=== PATIENT | male | born 1990 | race Caucasian/White ===

== ENCOUNTER 2017-01-07 18:35 | Inpatient (IN) ==
--- NOTE | 2017-01-07 20:35 | Emergency Department Note ---
Disposition Clinical Impression: Pneumonia, SIRS (systemic inflammatory response syndrome), Lung mass Disposition: Admitted As Inpatient Condition: Fair General Adult HPI - General Chief complaint: ED Dizziness Stated complaint: Dizzy/SOB/Lightheaded/Seen last Saturday Time Seen by Provider: 01/07/17 20:19 Source: patient Limitations: no limitations - History of Present Illness HPI Narrative: Approximately 8 days of cough, chest pain, shortness of breath. Was seen here 7 days ago with same symptoms, had a CT of the chest that did not explain his symptoms, but was told he had a "spot" on his lungs. Was told to follow-up with his family doctor, but is not able to get in to see him until late next month. He was prescribed naproxen last time he was here which helped with his symptoms, but as soon as he stopped taking the naproxen, the symptoms returned. Pain is in the center of his chest, sharp and stabbing, worse with a deep breath and with a cough. There is some associated pain under his right scapula with a deep breath. He has not felt febrile at home, but a temperature of 100.4 in triage. Cough is nonproductive. No hemoptysis. He feels lightheaded and dizzy but has no syncope or presyncope. Has had a sore throat, no ear pain or rhinorrhea. No abdominal pain, nausea, vomiting or diarrhea. Appetite has been normal. No rash. No pain or swelling in the legs. No history of similar symptoms before the last week or so. Pain Scale: 5 - Related Data Home Medications Medication Instructions Recorded Confirmed No Known Home Drugs 01/07/17 01/07/17 Allergies Allergy/AdvReac Type Severity Reaction Status Date / Time No Known Allergies Allergy Verified 12/31/16 18:43 All systems ED: reviewed and negative except as stated. Past Medical History - Past Medical History Medical history: Reports: no medical history Psychiatric history: Reports: no psych history - Social History Smoking Status: Never smoker Smokeless Tobacco Status: Yes (vapor) Alcohol use: Reports: none Drug use: Reports: none Physical Exam - General Limitations: no limitations General appearance: alert, in no apparent distress - Head Head exam: atraumatic, normocephalic - Eye Eye exam: Present: normal appearance. Absent: scleral icterus - ENT ENT exam: normal exam, normal oropharynx, mucous membranes moist - Neck Neck exam: Present: normal inspection, full ROM. Absent: tenderness, meningismus, lymphadenopathy - Chest Chest inspection: Present: normal inspection, symmetric chest wall rise - Respiratory Respiratory exam: Present: other (decreased breath sounds at right base compared to left). Absent: respiratory distress, wheezes, stridor, accessory muscle use, prolonged expiratory phase - Cardiovascular Cardiovascular exam: Present: normal rhythm, tachycardia - Abdominal Exam Abdominal exam: Present: soft, Non-Tender, other (no peritonitis). Absent: distention, guarding - Extremities Exam Extremities exam: Present: normal inspection, full ROM, tenderness. Absent: pedal edema, joint swelling, calf tenderness - Neurological Exam Neurological exam: Present: alert, oriented X3, other (normal speech and mental status, no focal deficits or lateralizing signs). Absent: motor sensory deficit - Psychiatric Psychiatric exam: Present: normal affect, normal mood - Skin Skin exam: Present: warm, dry, intact. Absent: rash Course Course Narrative: Chest x-ray CT result reviewed with the hospitalist on-call, who accepted patient for admission. Discussed in detail with the patient. Possibility of malignancy discussed with the patient. The patient has an infiltrate among the other findings in his chest, and meet surge criteria. Sepsis protocol initiated. Vital Signs Temperature 100.4 F H 01/07/17 19:15 Pulse Rate 120 01/07/17 19:15 Respiratory Rate 18 01/07/17 19:15 Blood Pressure 152/90 01/07/17 19:15 O2 Sat by Pulse Oximetry 96 01/07/17 19:15 Temperature 100.4 F H 01/07/17 19:15 Pulse Rate 113 01/07/17 22:31 Respiratory Rate 16 01/07/17 22:31 Blood Pressure 131/67 01/07/17 22:31 O2 Sat by Pulse Oximetry 97 01/07/17 22:31 Oxygen Delivery Oxygen Delivery Room Air Medical Decision Making - Lab Data Result diagrams: 01/07/17 20:58 01/07/17 20:58 Lab Results 01/07/17 01/07/17 01/07/17 Range/Units 20:58 20:58 22:36 WBC 16.4 H (4.3-11.1) K/mcL RBC 5.13 (4.19-5.50) M/mcL Hgb 14.3 (12.9-16.9) g/dL Hct 43.1 (37.5-50.1) % MCV 84.0 (83.0-100.0) fL MCH 27.9 L (28.0-33.3) pg MCHC 33.2 (31.6-35.5) g/dL RDW 12.9 (11.5-14.5) % Plt Count 521 H (140-400) K/mcL MPV 10.4 (9.4-12.4) fL Immature Gran % 0.9 (0-4) % Seg Neutrophils % 81.1 % Lymphocytes % 10.3 % Monocytes % 6.7 % Eosinophils % 0.6 % Basophils % 0.4 % Neutrophils # 13.3 H (1.6-8.9) K/mcL Lymphocytes # 1.7 (0.6-4.6) K/mcL Monocytes # 1.1 (0.0-1.3) K/mcL Eosinophils # 0.1 (0.0-0.6) K/mcL Basophils # 0.1 (0.0-0.2) K/mcL Sodium 135 L (136-145) mEq/L Potassium 3.8 (3.5-4.5) mEq/L Chloride 102 (98-109) mEq/L Carbon Dioxide 23 (19-29) mEq/L BUN 12 (8-26) mg/dL Creatinine 0.80 (0.72-1.25) mg/dL Est GFR ( Amer) > 60 (> 60) Est GFR (Non-Af Amer) > 60 (> 60) BUN/Creatinine Ratio 15 (6-26) Glucose 92 (70-99) mg/dL Calculated Osmolality 279 L (280-300) Lactic Acid 0.9 (0.5-2.2) mmol/L Calcium 9.7 (8.6-10.8) mg/dL - EKG Data EKG #1 EKG shows normal: sinus rhythm Rate: tachycardia (normal intervals/QRS, no acute ischemic changes, S1 Q3 T3 suggestive of right heart strain)
[2017-01-07 21:14] LABS: Basophils # 0.1 K/mcL (0.0-0.2); Basophils % 0.4 %; Eosinophils # 0.1 K/mcL (0.0-0.6); Eosinophils % 0.6 %; Hematocrit 43.1 % (37.5-50.1); Hemoglobin 14.3 g/dL (12.9-16.9); Immature Granulocytes % 0.9 % (0-4); Lymphocytes # 1.7 K/mcL (0.6-4.6); Lymphocytes % 10.3 %; Mean Corpuscular HGB Conc 33.2 g/dL (31.6-35.5); Mean Corpuscular Hemoglobin 27.9 pg (28.0-33.3); Mean Platelet Volume 10.4 fL (9.4-12.4); Monocytes # 1.1 K/mcL (0.0-1.3); Monocytes % 6.7 %; Neutrophils # 13.3 K/mcL (1.6-8.9); Platelet Count 521 K/mcL (140-400); Red Blood Count 5.13 M/mcL (4.19-5.50); Red Cell Distribution Width 12.9 % (11.5-14.5); Segmented Neutrophils % 81.1 %
[2017-01-07 21:28] LABS: BUN/Creatinine Ratio 15 (6-26); Blood Urea Nitrogen 12 mg/dL (8-26); Calcium 9.7 mg/dL (8.6-10.8); Carbon Dioxide 23 mEq/L (19-29); Chloride 102 mEq/L (98-109); Glucose 92 mg/dL (70-99); Osmolality,Calculated 279 (280-300); Potassium 3.8 mEq/L (3.5-4.5); Sodium 135 mEq/L (136-145); eGFR For African Americans > 60 (> 60); eGFR For Non-African Americans > 60 (> 60)
[2017-01-07] MEDS: 0.9 % Sodium Chloride 1,000 ML IVC SCH ×2 (22:28→23:28)
[2017-01-07] MEDS ORDERED: Benzonatate 100 MG CAPSULE PO ONE (23:36)
--- NOTE | 2017-01-08 03:38 | Internal Med History&Physical ---
Date of Encounter: 01/08/17 Time of Encounter: 03:38 Assessment and Plan (1) Mediastinal mass Current visit: Yes Status: Acute Recent CT chest showed showed posterior mediastinal mass in the subcarinal region, measuring 3.84.6 cm - may represent an enlarged lymph node or mediastinal neoplastic mass. Bilateral hilar adenopathy. Lymphoma should be considered. We will check LDH level. Consult pulmonary physician for possible bronchoscopy / biopsy of the lesion. Consult oncologist for further advice (2) Chest pain Current visit: Yes Status: Acute Likely musculo-skeletal pain. Pain relief PRN. (3) SIRS (systemic inflammatory response syndrome) Current visit: Yes Status: Acute Could be secondary to lymphoma versus Pneumonia (Recent CT chest reported Nodular infiltrates in the left lower lobe) Treat with IV fluids and emperic antibiotics. (4) Pulmonary infiltrate Current visit: Yes Status: Acute Recent CT chest showed Nodular infiltrates in the left lower lobe. Emperically treat with levofloxacin. Lactate level is normal (5) Pleural effusion Current visit: Yes Status: Acute Small effusion reported on CT chest. Monitor (6) DVT prophylaxis Current visit: Yes Status: Acute Heparin Internal Medicine - H&P: HPI Chief complaint: chest pain Admitted From: Emergency Dept Plans for Post Hospital Care: Home History of present illness: Mr. Renteria is a 26 year old male With no significant past medical history, initially presented to the emergency department at [facility] on 12/31/2016 with 4 day h/o chest with pleuritic nature. He had CTA chest done, which showed no evidence of pulmonary embolism, but showed posterior mediastinal mass in the subcarinal region. He was discharged home with planned follow-up with the primary care physician. He could not get an appointment with PCP until next month. He continues to have chest pain, which is sharp in the central chest, 5/10 at rest and 8/10 with cough. Pain moves across the chest. He feels short of breath at rest and on exertion. His colleague mentioned to him that he was wheezing while breathing. He has nonproductive cough, which is getting worse. He feels tired. He reports low- grade fevers and night sweats for 2 days. He denies abdominal pain, nausea, vomiting, dysuria, hematuria, or bowel problems. He reports chronic exposure to fumes at work place. He was evaluated in the emergency department and CXR showed bilateral hilar adenopathy. He is admitted to the hospitalist service for further management. Past Med Surg Social Fam HX - Past Medical History Medical history: no medical history Psychiatric history: no psych history - Past Surgical History Surgical History: cholecystectomy - Social History Smoking Status: Never smoker Smokeless Tobacco Status: Yes (vapor) Alcohol use: none Drug use: none - Additional Family History Additional family history: Family history noncontributory to current admission Internal Medicine - H&P: Meds No Known Home Drugs 01/07/17 [History] Allergies No Known Allergies Allergy (Verified 12/31/16 18:43) All Systems PM: A 10-system review of systems was performed and is negative for pertinent findings except as documented above in the HPI. - Constitutional Vitals: Temp Pulse Resp BP Pulse Ox 99.0 F 107 19 141/68 94 01/08/17 01:02 01/08/17 01:02 01/08/17 01:02 01/08/17 01:02 01/08/17 01:02 Exam: General: Not in acute distress at the time of my evaluation HEENT: Oral mucosa is moist. No conjunctival palor or scleral icterus Neck: No obvious neck swellings. No obvious cervical/bilateral axillary lymphadenopathy Lungs: Clear to auscultation Cardiac: Regular rate and rhythm, tachycardic. No significant murmurs. Anterior chest wall tenderness present Abdomen: Soft, non tender. Bowel sounds present Genitourinary: No hutchison catheter Neurological: Alert and oriented. No gross localizing deficits Psych: Not aggressive or agitated Extremities: no significant leg edema Skin: No generalized rash Internal Med - H&P Results - Labs CBC & Chem 7: 01/08/17 04:05 01/08/17 04:05 - EKG Data -: EKG Interpreted by Myself EKG shows normal: sinus rhythm Rate: tachycardia - EKG Data EKG comments: Q wave in lead III, avf 01/08/17 05:51 - Impressions ITS Impressions Chest X-Ray 01/07/17 20:20 IMPRESSION: Persistent bilateral hilar lymphadenopathy right more pronounced than left seen to better advantage on CT from 1 week earlier with some right basilar atelectasis and small right pleural effusion as well as focal mass in the left lung base. Neoplasm needs to be excluded. Lymphoma is questioned. D/ / 01/07/2017 20:49:40 Rylan Morales MD / [email or web address] Interpreting Provider: Rylan Morales MD
[2017-01-08] MEDS ORDERED: Naloxone 0.4 MG/ML INJ IVP PRN (03:39)
[2017-01-08] MEDS ORDERED: Acetaminophen 325 MG TABLET PO PRN (03:39)
[2017-01-08] MEDS ORDERED: Levalbuterol Neb 1.25 MG/3 ML IH PRN (03:49)
[2017-01-08] MEDS: *HR* HYDROcodone/Acet 5/325 mg TABLET PO PRN ×2 (03:52→08:27)
[2017-01-08] MEDS: 0.9 % Sodium Chloride 1,000 ML IVC SCH ×4 (03:53→23:23)
[2017-01-08 04:54] LABS: Hematocrit 37.1 % (37.5-50.1); INR 1.6; Mean Corpuscular HGB Conc 33.2 g/dL (31.6-35.5); Mean Corpuscular Hemoglobin 27.9 pg (28.0-33.3); Mean Corpuscular Volume 84.1 fL (83.0-100.0); Mean Platelet Volume 10.5 fL (9.4-12.4); Platelet Count 466 K/mcL (140-400); Prothrombin Time 17.1 Seconds (9.4-12.1); Red Blood Count 4.41 M/mcL (4.19-5.50); Red Cell Distribution Width 13.1 % (11.5-14.5)
[2017-01-08 04:57] LABS: Hemoglobin 12.3 g/dL (12.9-16.9)
[2017-01-08 05:08] LABS: Alanine Aminotransferase 21 Units/L (0-55); Albumin 2.8 g/dL (3.5-5.0); Albumin/Globulin Ratio 0.6 (1.1-2.2); Alkaline Phosphatase 136 Units/L (38-126); Aspartate Amino Transferase 31 Units/L (5-34); BUN/Creatinine Ratio 17 (6-26); Bilirubin,Total 0.7 mg/dL (0.2-1.2); Blood Urea Nitrogen 13 mg/dL (8-26); Carbon Dioxide 22 mEq/L (19-29); Chloride 106 mEq/L (98-109); Globulin 4.4 g/dL (2.4-3.5); Glucose 88 mg/dL (70-99); Lactate Dehydrogenase 215 Units/L (159-327); Magnesium 1.7 mg/dL (1.6-2.6); Osmolality,Calculated 284 (280-300); Potassium 3.7 mEq/L (3.5-4.5); Sodium 137 mEq/L (136-145); Total Protein 7.2 g/dL (6.0-8.3); eGFR For African Americans > 60 (> 60); eGFR For Non-African Americans > 60 (> 60)
[2017-01-08] MEDS: Levofloxacin 750 MG/150 ML 750 MG/150 ML BAG IVPB SCH ×2 (06:17→09:56)
[2017-01-08] MEDS: *HR* Heparin 5,000 UNIT/ML VIAL SQ SCH ×3 (08:28→23:21)
--- NOTE | 2017-01-08 10:04 | Internal Med Progress Note ---
<Senthil Deleon - Last Filed: 01/08/17 16:26> Date of Encounter: 01/08/17 Time of Encounter: 08:50 - Assessment and plan (1) Mediastinal mass Current Visit: Yes Status: Acute Assessment and plan: Recent CTA chest shows a posterior mediastinal mass in the sub-carinal region measuring 3.8x4.6 with bilateral hilar adenopathy. This finding is concerning as it could possibly represent a neoplastic process. His pleuritic chest pain could be related to his underlying lung pathology. His subjective fevers, anoerexia, diaphoresis, and fatigue are concerning for possible neoplastic process as well. Pulmonology has been consulted for evaluation for possible bronchoscopy Oncology has also been consulted to help asses the malignancy concern Continue levaquin day 2 Will stop xopenex and start albuterol NPO at midnight Continue IVF with 100 mls/hr NS (2) SIRS (systemic inflammatory response syndrome) Current Visit: Yes Status: Acute Assessment and plan: Patient presents with several SIRS criteria (tachycardia, leukocytosis, and fever). He might have an infection in his lung, making his current problem Sepsis, but it is unconfirmed at the moment and the findings on CT could represent the changes seen. He received 1 liter of fluids at presentation and is being continued on IVF with 100 mls/hr NS currently Continuing IV levoquin (3) Pulmonary infiltrate Current Visit: Yes Status: Acute Assessment and plan: Nodular Infiltrates noted on CTA from 12/31/16. This could represent infection. Will cover with empiric antibiotics for now. Continue IV levofloxacin (4) Pleural effusion Current Visit: Yes Status: Acute Assessment and plan: Small pleural effusion noted on CT Chest. Plan as above (5) Chest pain Current Visit: Yes Status: Acute Assessment and plan: Pain pleuritic chest pain likely related cough and continued pleuritic pain. Pain as above Qualifiers: Chest pain type: unspecified Qualified Code(s): R07.9 - Chest pain, unspecified (6) DVT prophylaxis Current Visit: Yes Status: Acute Assessment and plan: 5000 U heparin SQ TID - Subjective Interval history: Patient reports that he is continuing to have pain in his chest that does not seem to be affected by the pain medications that he has been receiving. He reports the pain in pleuritic in nature ranging from a 5/10 at baseline and going to a 9-10 in severity when coughing/breathing. He reports having some shortness of breath, fever, and night sweats recently. He states that he has been somewhat fatigued and has had a dry, non-productive cough. This has continued while admitted, but reports that he finds it difficult to sleep on account of the pain in his chest. - Constitutional Vitals: Temp Pulse Resp BP Pulse Ox 98.9 F 97 16 132/79 96 01/08/17 06:58 01/08/17 06:58 01/08/17 06:58 01/08/17 06:58 01/08/17 09:21 Exam: General: Cooperative, pleasant, no acute distress, alert and oriented 3, answers questions appropriately HEENT: Normocephalic, atraumatic, neck supple, trachea midline, Conjunctiva pink , sclera anicteric, oral mucosa moist, no orophargeal erythema or exudates Respiratory: No accessory muscle usage, right sided rales on auscultation Cardiovascular: tachycardia, regular rhythm, S1 and S2 present, no murmurs/rubs/ gallops/clicks appreciated, tenderness to palpation of sternal region GI/abdominal: Nondistended, nontender, soft, normal bowel sounds, no peritoneal signs Extremities: No calf tenderness, noncyanotic, no pedal edema appreciated, warm, lower extremity pulses palpable and symmetrical Neurological: Alert and oriented 3, no facial droop, no focal deficits Skin: Dry, intact, normal color Internal Medicine: Result - Labs CBC & Chem 7: 01/08/17 04:05 01/08/17 04:05 Labs: Short CBC 01/08/17 Range/Units 04:05 WBC 15.8 H (4.3-11.1) K/mcL Hgb 12.3 L D (12.9-16.9) g/dL Hct 37.1 L (37.5-50.1) % Plt Count 466 H (140-400) K/mcL BMP 01/08/17 04:05 Sodium 137 Potassium 3.7 Chloride 106 Carbon Dioxide 22 BUN 13 Creatinine 0.78 Glucose 88 Calcium 9.0 Cardiac Enzymes 01/08/17 Range/Units 04:05 Troponin I 0.00 (0-0.03) ng/mL Liver Function 01/08/17 Range/Units 04:05 Total Bilirubin 0.7 (0.2-1.2) mg/dL AST 31 (5-34) Units/L ALT 21 (0-55) Units/L Alkaline Phosphatase 136 H (38-126) Units/L Albumin 2.8 L (3.5-5.0) g/dL - ABG Interpretation ABG results: PT/INR, D-dimer PT 17.1 Seconds (9.4-12.1) H 01/08/17 04:05 Consult Discharge Plan - Plan Referrals: Geoff,Jasmina Morin CNP [Advanced Practice Nurse] - 01/15/17 1:15 pm <Vimal Collier - Last Filed: 01/08/17 16:44> Date of Encounter: 01/08/17 - Constitutional Vitals: Temp Pulse Resp BP Pulse Ox 98.2 F 97 16 155/80 95 01/08/17 15:25 01/08/17 15:25 01/08/17 15:25 01/08/17 15:25 01/08/17 15:25 Internal Medicine: Result - Labs CBC & Chem 7: 01/08/17 04:05 01/08/17 04:05 Labs: Short CBC 01/08/17 Range/Units 04:05 WBC 15.8 H (4.3-11.1) K/mcL Hgb 12.3 L D (12.9-16.9) g/dL Hct 37.1 L (37.5-50.1) % Plt Count 466 H (140-400) K/mcL BMP 01/08/17 04:05 Sodium 137 Potassium 3.7 Chloride 106 Carbon Dioxide 22 BUN 13 Creatinine 0.78 Glucose 88 Calcium 9.0 Cardiac Enzymes 01/08/17 Range/Units 04:05 Troponin I 0.00 (0-0.03) ng/mL Liver Function 01/08/17 Range/Units 04:05 Total Bilirubin 0.7 (0.2-1.2) mg/dL AST 31 (5-34) Units/L ALT 21 (0-55) Units/L Alkaline Phosphatase 136 H (38-126) Units/L Albumin 2.8 L (3.5-5.0) g/dL - ABG Interpretation ABG results: PT/INR, D-dimer PT 17.1 Seconds (9.4-12.1) H 01/08/17 04:05 - Attending Attestation I examined this patient and my medical decision-making was reviewed with the COLD WORK OPERATOR/PA/Advanced Practice Nurse/Resident Physician. I agree with the documented findings, disposition and treatment plan as described except to the extent set forth below. oncology and pulmonary input appreciated.
[2017-01-08 11:34] LABS: Carcinoembryonic Antigen 0.9 ng/mL (0-5.0)
--- NOTE | 2017-01-08 12:54 | Oncology Inp Consult Note ---
Date of Encounter: 01/08/17 Time of Encounter: 12:30 Assessment and Plan (1) Mediastinal mass Status: Acute Assessment and plan: I met with Mr. Renteria today and reviewed his labs imaging and history with him. He has significant mediastinal lymphadenopathy. This appears to be causing some compression on his esophagus with associated dysphagia. The differential diagnosis includes lymphoma, germ cell tumor and even esophageal cancer. This was discussed with the patient today. I recommend obtaining a biopsy. I reviewed the case with Dr. Briscoe of gastroenterology and the hospitalist team has discussed as were pulmonary. As pulmonary has been officially consulted, and EBUS is quite reasonable. I will also obtain CT imaging of the abdomen and pelvis to complete staging. I will obtain serologies including AFP, hCG, CEA and LDH Further treatment recommendations will be based on the above. I appreciate the opportunityto care for this patient. We will continue to follow. Please call [phone] for any questions. - Data of Consult Requesting Physician: Vimal Collier MD Primary Care Provider: PCP NO - Consult Narrative Reason for consult: Mediastinal mass History of present illness: Mr. Renteria is a 26 year old male who presented to the emergency department 1 week ago for chest pain. CT scan of the chest revealed subcarinal, periesophageal and bilateral hilar adenopathy. Since that time, his chest pain has persisted, he has now developed a nonproductive cough as well. For the past 2 nights, he has had a fever with MAXIMUM TEMPERATURE of 100.4. This is been associated with night sweats as well. Upon further questioning, he is actually had some ongoing issues for the past 3 months or so. He states he lost approximately 30- 40 pounds. He states this is intentional as he is now working second shift at work. With his weight loss, he admits to salt food dysphagia especially when he is "gulping food down". He also can have liquid food dysphagia to carbonate beverages. He has a long-standing history of GERD. No other lumps or bumps. No testicular pain or swelling. No bleeding symptoms of epistaxis, hemoptysis, hematochezia, melena or hematemesis. Past Med Surg Social Fam HX - Past Medical History Medical history: no medical history Psychiatric history: no psych history - Past Surgical History Surgical History: cholecystectomy - Social History Smoking Status: Never smoker Smokeless Tobacco Status: Yes (vapor) Alcohol use: none Drug use: none Medications and Allergies No Known Home Drugs 01/07/17 [History] Allergies No Known Allergies Allergy (Verified 12/31/16 18:43) All systems: reviewed and no additional remarkable complaints except as stated Neurological: Present: headache(s) Additional comments: Headaches have resolved. Oncology - Exam - Constitutional Vitals: Temp Pulse Resp BP Pulse Ox 97.1 F L 99 16 142/68 95 01/08/17 11:07 01/08/17 11:07 01/08/17 11:07 01/08/17 11:07 01/08/17 11:07 - Head Head exam: Present: atraumatic, normal inspection, normocephalic - Eye Eye exam: Present: conjuntiva pink, sclera anicteric - ENT ENT exam: Present: mucous membranes moist, normal oropharynx - Neck Neck exam: Present: full ROM, normal inspection - Respiratory Respiratory exam: Present: CTAB - Cardiovascular Cardiovascular exam: Present: RRR - GI/Abdominal GI/Abdominal exam: Present: normal bowel sounds, soft - exam: Present: circumcision External exam: Present: normal external exam - Extremities Exam Extremities exam: Present: normal inspection - Neurological Exam Neurological exam: Present: CN II-XII intact, oriented X3 Oncology - Results - Labs Labs: Short CBC 01/08/17 Range/Units 04:05 WBC 15.8 H (4.3-11.1) K/mcL Hgb 12.3 L D (12.9-16.9) g/dL Hct 37.1 L (37.5-50.1) % Plt Count 466 H (140-400) K/mcL BMP 01/08/17 04:05 Sodium 137 Potassium 3.7 Chloride 106 Carbon Dioxide 22 BUN 13 Creatinine 0.78 Glucose 88 Calcium 9.0 Cardiac Enzymes 01/08/17 Range/Units 04:05 Troponin I 0.00 (0-0.03) ng/mL Liver Function 01/08/17 Range/Units 04:05 Total Bilirubin 0.7 (0.2-1.2) mg/dL AST 31 (5-34) Units/L ALT 21 (0-55) Units/L Alkaline Phosphatase 136 H (38-126) Units/L Albumin 2.8 L (3.5-5.0) g/dL - Imaging and Cardiology CT scan - chest Status: image reviewed by me Consult Discharge Plan - Plan Referrals: Jasmina Tellez CNP [Advanced Practice Nurse] - 01/15/17 1:15 pm
[2017-01-08] MEDS ORDERED: Albuterol 2.5 MG/3 ML NEBULIZER IH PRN (13:41)
[2017-01-08] MEDS: *HR* OxyCODONE/APAP 5/325 TABLET PO PRN ×3 (13:51→23:21)
--- NOTE | 2017-01-08 17:16 | Pulmonology Consult Note ---
Date of Encounter: 01/08/17 Time of Encounter: 13:05 Assessment and Plan (1) Mediastinal mass Current Visit: Yes Status: Acute 26-year-old male with no identifiable risk factors for malignancy with approximately 3 x 4 cm subcarinal mass. 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 Agree that findings are concerning for possible malignancy. Discussed the option of bronchoscopy with Perry needle biopsy of subcarinal mass. Patient is agreeable with this intervention. Plan for bronchoscopy with needle aspiration of subcarinal mass tomorrow at approximately 3 PM. Patient is to be nothing by mouth after midnight. History of Present Illness Consult date: 01/08/17 Reason for consult: other (Mediastinal mass) Chief complaint: Dyspnea and chest pain History of present illness: 26-year-old male was admitted yesterday for expedite workup of incidentally discovered subcarinal mass with associated hilar adenopathy. Patient states that approximately 4 days ago he began to experience new onset chest pain and dyspnea. Patient was evaluated at a local emergency department where a CT PA was obtained. Imaging was negative for pulmonary embolism, but a large subcarinal mass and hilar adenopathy were noted. Patient was discharged from the ED with directions to follow up with his primary care provider. However patient was unable to obtain outpatient evaluation a timely manner and was admitted to this facility for expedited evaluation. Today patient reports continued dyspnea with intermittent chest pain and cough. Denies significant mucus production or hemoptysis. Has noted occasional low-grade subjective fever. Does report approximately 30 pounds of weight loss and notes this is been intentional as well. Denies night sweats. Past Med Surg Social Fam HX - Past Medical History Source: patient (Obesity) Medical history: no medical history Psychiatric history: no psych history - Past Surgical History Surgical History: cholecystectomy - Social History Smoking Status: Never smoker Smokeless Tobacco Status: Yes (vapor) Alcohol use: none Drug use: none Medications and Allergies No Known Home Drugs 01/07/17 [History] Allergies No Known Allergies Allergy (Verified 12/31/16 18:43) All Systems: A 10-system review of systems was performed and is negative for pertinent findings except as documented above in the HPI. - Constitutional Constitutional: fever(s), weight loss, no anorexia, no chills, no excessive sweating, no night sweats - EENT Eyes: no loss of vision Nose, mouth and throat: no dry mouth, no dysphagia, no epistaxis, no hoarseness , no odynophagia - Cardiovascular Cardiovascular: chest pain, dyspnea, dyspnea on exertion, no claudication, no edema, no irregular heart rhythm - Respiratory Respiratory: cough, dyspnea, no hemoptysis, no wheezing - Gastrointestinal Gastrointestinal: no abdominal pain, no diarrhea, no nausea, no vomiting - Genitourinary Genitourinary: no change in urinary stream, no difficulty urinating, no flank pain - Musculoskeletal Musculoskeletal: no abnormal gait, no arthralgias, no joint swelling - Neurological Neurological: no abnormal gait, no abnormal speech, no disequilibrium, no dizziness - Psychiatric Psychiatric: no depression, no mood swings - Endocrine Endocrine: no excessive sweating, no flushing Physical Examination Vital Signs: Vital Signs, Last 4 Hours Temp Pulse Resp BP Pulse Ox 01/08/17 15:25 98.2 F 97 16 155/80 95 General appearance: no acute distress Eyes: nonicteric Neck: supple, no JVD Effort: normal Inspection: normal Auscultation: bilateral: clear Cardiovascular: regular rate and rhythm Gastrointestinal: normoactive bowel sounds Extremities: no cyanosis, no edema, no clubbing Musculoskeletal: no deformities normal mental status, non-focal exam mood appropriate Results - Laboratory Findings CBC and BMP: 01/08/17 04:05 01/08/17 04:05 PT/INR, D-dimer PT 17.1 Seconds (9.4-12.1) H 01/08/17 04:05 Abnormal lab findings: Abnormal lab results WBC 15.8 K/mcL (4.3-11.1) H 01/08/17 04:05 Hgb 12.3 g/dL (12.9-16.9) L D 01/08/17 04:05 Hct 37.1 % (37.5-50.1) L 01/08/17 04:05 MCH 27.9 pg (28.0-33.3) L 01/08/17 04:05 Plt Count 466 K/mcL (140-400) H 01/08/17 04:05 Neutrophils # 13.3 K/mcL (1.6-8.9) H 01/07/17 20:58 ESR 121 mm/hr (0-10) H 01/08/17 04:05 PT 17.1 Seconds (9.4-12.1) H 01/08/17 04:05 Alkaline Phosphatase 136 Units/L (38-126) H 01/08/17 04:05 Albumin 2.8 g/dL (3.5-5.0) L 01/08/17 04:05 Globulin 4.4 g/dL (2.4-3.5) H 01/08/17 04:05 Albumin/Globulin Ratio 0.6 (1.1-2.2) L 01/08/17 04:05 - Clinical Findings Intake & Output: Intake & Output 01/08/17 01/08/17 01/08/17 07:59 15:59 23:59 Intake Total 0 / 1000 1700 / 1700 Balance 0 / 1000 1700 / 1700 Consult Discharge Plan - Plan Referrals: Jasmina Tellez CNP [Advanced Practice Nurse] - 01/15/17 1:15 pm
--- NOTE | 2017-01-08 19:02 | Electrocardiograph Report ---
[place] [id number] Test Date: 2017-01-07 Pat Name: Last Renteria Department: 103 Room: [facility] Gender: M Tailer In: : 1990 Requested By: Sherwin Ortega Order Number: [id number] Reading MD: Ciara Jimenez Measurements Intervals [place] Rate: 124 P: 39 NM: 158 QRS: 32 QRSD: 93 T: 16 QT: 284 QTc: 358 Interpretive Statements SINUS TACHYCARDIA ABNORMAL RHYTHM ECG Electronically Signed On 01-08-2017 19:00:20 EDT by Ciara Jimenez
--- NOTE | 2017-01-09 07:24 | Oncology Inp Progress Note ---
Date of Encounter: 01/09/17 Time of Encounter: 07:30 (1) Mediastinal mass Current Visit: Yes Status: Acute Assessment and plan: Significant mediastinal lymphadenopathy. This appears to be causing some compression on his esophagus with associated dysphagia as well as early airway compression. He has reproducible chest pain and mild SOB. The differential diagnosis includes lymphoma, germ cell tumor and even esophageal cancer. EBUS today. AFP, hCG pending. CEA and LDH normal. CT A/P without significant finding. Further treatment recommendations will be based on the above. I appreciate the opportunity to care for this patient. We will continue to follow. Please call [phone] for any questions. Oncology: Subj Interval history: Bronchoscopy scheduled today at 3 PM. No acute events overnight. Slept better. ?night sweat but unsure. Cough persists. Chest pain with cough stable. - Constitutional Vitals: Vital Signs Temp Pulse Resp BP Pulse Ox 01/09/17 07:05 98.7 F 98 16 161/82 97 01/08/17 23:45 98.2 F 102 16 149/75 96 01/08/17 19:46 98.2 F 119 17 152/92 97 01/08/17 15:25 98.2 F 97 16 155/80 95 01/08/17 11:07 97.1 F L 99 16 142/68 95 01/08/17 09:21 96 Intake and Output 01/08/17 01/09/17 01/09/17 16:59 00:59 08:59 Intake Total 1550 / 1550 1440 / 1440 Balance 1550 / 1550 1440 / 1440 Intake: IV Fluids 1000 / 1000 1000 / 1000 0.9 % Sodium Chloride 1, 1000 / 1000 1000 / 1000 000 ML @ 100 mls/hr IVC . Q10H GE Rx#:[id number] Oral 550 / 550 440 / 440 Other: Meal Lunch Dinner Percent of Meal Consumed 75% 100% # Voids 1 1 Weight 125 kg - Head Head exam: Present: atraumatic, normal inspection, normocephalic - Eye Eye exam: Present: conjuntiva pink, sclera anicteric - ENT ENT exam: Present: mucous membranes moist, normal oropharynx - Neck Neck exam: Present: full ROM, normal inspection - Respiratory Respiratory exam: Present: CTAB - Cardiovascular Cardiovascular exam: Present: RRR - GI/Abdominal GI/Abdominal exam: Present: normal bowel sounds, soft - Extremities Exam Extremities exam: Present: normal inspection - Neurological Exam Neurological exam: Present: CN II-XII intact, oriented X3, no focal deficits Oncology: Obj Data - Labs CBC & Chem 7: 01/09/17 07:31 01/09/17 07:31 Labs: Laboratory Results - last 24 hr 01/08/17 10:49 Lactate Dehydrogenase 190 Carcinoembryonic Ag 0.9 - Impressions Impressions Abdomen/Pelvis CT 01/08/17 18:30 IMPRESSION: Multiple thoracic lymph nodes in the hilar and subcarinal regions are noted. There is associated narrowing of the right lower lobe airways and multifocal right lower lobe airspace disease which is likely pneumonia. Small right and minimal left pleural effusions Small lung nodules at the left lung base. Multiple small lymph nodes in the abdomen and the pelvis, as described. No pathologic enlargement is noted. Otherwise no acute abnormality in the abdomen or the pelvis. Fleischner Society guidelines for follow-up and management of incidentally detected pulmonary nodules: Single Solid Nodule: Nodule size less than 6 mm In a low-risk patient, no routine follow-up. In a high-risk patient, optional CT at 12 months. Nodule size equals 6-8 mm In a low-risk patient, CT at 6-12 months, then consider CT at 18-24 months. In a high-risk patient, CT at 6-12 months, then CT at 18-24 months. Nodule size greater than 8 mm In a low-risk patient, consider CT, PET/CT, or tissue sampling at 3 months. In a high-risk patient, consider CT, PET/CT, or tissue sampling at 3 months. Multiple Solid Nodules: Nodule size less than 6 mm In a low-risk patient, no routine follow-up. In a high-risk patient, optional CT at 12 months. Nodule size equals 6-8 mm In a low-risk patient, CT at 3-6 months, then consider CT at 18-24 months. In a high-risk patient, CT at 3-6 months, then CT at 18-24 months. Nodule size greater than 8 mm In a low-risk patient, CT at 3-6 months, then consider CT at 18-24 months. In a high-risk patient, CT at 3-6 months, then CT at 18-24 months. - Low risk patients include individuals with minimal or absent history of smoking and other known risk factors. - High risk patients include individuals with a history or smoking or known risk factors. Radiology 2017 http://pubs.rsna.org/doi/full/10.1148/radiol.3420080883 D/ / Vaughn Linder / Vaughn Linder Interpreting Provider: Vaughn Linder - Imaging and cardiology CT scan - abdomen Status: image reviewed by me Additional comments: Chest X-Ray 01/07/17 20:20 IMPRESSION: Persistent bilateral hilar lymphadenopathy right more pronounced than left seen to better advantage on CT from 1 week earlier with some right basilar atelectasis and small right pleural effusion as well as focal mass in the left lung base. Neoplasm needs to be excluded. Lymphoma is questioned. D/ / 01/07/2017 20:49:40 Rylan Morales MD / [facility] Inter[facility]ting Provider: Rylan Morales MD Abdomen/Pelvis CT 01/08/17 18:30 IMPRESSION: Multiple thoracic lymph nodes in the hilar and subcarinal regions are noted. There is associated narrowing of the right lower lobe airways and multifocal right lower lobe airspace disease which is likely pneumonia. Small right and minimal left pleural effusions Small lung nodules at the left lung base. Multiple small lymph nodes in the abdomen and the pelvis, as described. No pathologic enlargement is noted. Otherwise no acute abnormality in the abdomen or the pelvis. - ABG Interpretation ABG results: PT/INR, D-dimer PT 17.1 Seconds (9.4-12.1) H 01/08/17 04:05 Consult Discharge Plan - Plan Referrals: Jasmina Tellez CNP [Advanced Practice Nurse] - 01/15/17 1:15 pm
[2017-01-09] MEDS: *HR* Heparin 5,000 UNIT/ML VIAL SQ SCH ×3 (07:46→23:42)
[2017-01-09] MEDS: Levofloxacin 750 MG/150 ML 750 MG/150 ML BAG IVPB SCH (07:51)
[2017-01-09 07:58] LABS: BUN/Creatinine Ratio 11 (6-26); Blood Urea Nitrogen 8 mg/dL (8-26); Carbon Dioxide 21 mEq/L (19-29); Chloride 107 mEq/L (98-109); Glucose 94 mg/dL (70-99); Osmolality,Calculated 282 (280-300); Potassium 3.9 mEq/L (3.5-4.5); Sodium 137 mEq/L (136-145); eGFR For African Americans > 60 (> 60); eGFR For Non-African Americans > 60 (> 60)
[2017-01-09 07:59] LABS: Basophils % 0.3 %; Eosinophils # 0.2 K/mcL (0.0-0.6); Eosinophils % 1.5 %; Hematocrit 40.1 % (37.5-50.1); Hemoglobin 12.8 g/dL (12.9-16.9); Immature Granulocytes % 0.8 % (0-4); Lymphocytes # 1.5 K/mcL (0.6-4.6); Lymphocytes % 10.6 %; Mean Corpuscular HGB Conc 31.9 g/dL (31.6-35.5); Mean Corpuscular Hemoglobin 27.1 pg (28.0-33.3); Mean Corpuscular Volume 84.8 fL (83.0-100.0); Mean Platelet Volume 10.8 fL (9.4-12.4); Monocytes # 0.9 K/mcL (0.0-1.3); Monocytes % 6.5 %; Neutrophils # 11.6 K/mcL (1.6-8.9); Platelet Count 449 K/mcL (140-400); Red Blood Count 4.73 M/mcL (4.19-5.50); Red Cell Distribution Width 13.1 % (11.5-14.5); Segmented Neutrophils % 80.3 %
[2017-01-09] MEDS ORDERED: Tetracaine/Benzocaine/Butamben 200MG/SPRAY (100SPY/BOT) MM ONE (08:44)
[2017-01-09] MEDS: *HR* Morphine 2 MG/ML SYRINGE IVP PRN ×2 (08:54→13:41)
--- NOTE | 2017-01-09 08:54 | Pre-Sedation Evaluation ---
Pre-sedation evaluation - Pre-sedation checklist Date of procedure: 01/09/17 Procedure: Bronchscopy Recent Vitals: Last Vital Signs Temp 98.7 F 01/09/17 07:05 Pulse 98 01/09/17 07:05 Resp 16 01/09/17 07:05 BP 161/82 01/09/17 07:05 Pulse Ox 98 01/09/17 08:00 H&P (including ROS) documented in medical record: Yes Previous reaction to sedatives/anesthetics: Unknown Dietary Status: NPO after Midnight Airway Assessment: Patient can open mouth completely, TMJ function normal Dentition: full dentition Possible difficult airway: Yes If Yes;: Morbid obesity, Enlarged neck circumference, short neck ASA Classification *see protocol: CLASS II-Mild systemic disease Plan of Care: Pt appropriate candidate for procedure/moderate/conscious sedation , Risks/benefits of procedure/sedation discussed w/ patient/family
[2017-01-09] MEDS: 0.9 % Sodium Chloride 1,000 ML IVC SCH ×2 (09:05→22:27)
--- NOTE | 2017-01-09 09:38 | Internal Med Progress Note ---
<Senthil Deleon - Last Filed: 01/09/17 09:36> Date of Encounter: 01/09/17 Time of Encounter: 08:30 - Assessment and plan (1) Mediastinal mass Current Visit: Yes Status: Acute Assessment and plan: Recent CTA chest shows a posterior mediastinal mass in the sub-carinal region measuring 3.8x4.6 with bilateral hilar adenopathy. This finding is concerning as it could possibly represent a neoplastic process. His pleuritic chest pain could be related to his underlying lung pathology. His subjective fevers, anoerexia, diaphoresis, and fatigue are concerning for possible neoplastic process as well. Pulmonology has been consulted for evaluation for bronchoscopy planned bronchoscopy to obtain biopsy scheduled for this afternoon Oncology has also been consulted to help asses the malignancy concern Continue levaquin day 3 Continue albuerol NPO until bronchoscopy, after resume regular diet Continue IVF with 100 mls/hr NS (2) SIRS (systemic inflammatory response syndrome) Current Visit: Yes Status: Acute Assessment and plan: Patient presents with several SIRS criteria (tachycardia, leukocytosis, and fever). He might have an infection in his lung, making his current problem Sepsis, but it is unconfirmed at the moment and the findings on CT could represent the changes seen. He received 1 liter of fluids at presentation and is being continued on IVF with 100 mls/hr NS currently Continuing IV levoquin Continued tachycardia and leukocytosis today (3) Pulmonary infiltrate Current Visit: Yes Status: Acute Assessment and plan: Nodular Infiltrates noted on CTA from 12/31/16. This could represent infection. Will cover with empiric antibiotics for now. Continue IV levofloxacin (4) Pleural effusion Current Visit: Yes Status: Acute Assessment and plan: Small pleural effusion noted on CT Chest. Plan as above (5) Chest pain Current Visit: Yes Status: Acute Assessment and plan: Pleuritic chest pain likely related to cough and mediastinal mass Oxycodone/acetaminophen added yesterday Will add 2 mg IV morphine Q4hr prn Qualifiers: Chest pain type: unspecified Qualified Code(s): R07.9 - Chest pain, unspecified (6) DVT prophylaxis Current Visit: Yes Status: Acute Assessment and plan: 5000 U heparin SQ TID - Subjective Interval history: Patient appears to be sleeping comfortably when approached this morning, but he wakes easily to verbal stimuli. He reports that he is still having pain in the center of his cest, though he does admit that the increased dose of pain medication does help somewhat. He reports having some subjective shortness of breath and subjective fever. He denies any nausea or abdominal pain. - Constitutional Vitals: Temp Pulse Resp BP Pulse Ox 98.7 F 98 16 161/82 98 01/09/17 07:05 01/09/17 07:05 01/09/17 07:05 01/09/17 07:05 01/09/17 08:00 Exam: General: Cooperative, pleasant, no acute distress, alert and oriented 3, answers questions appropriately HEENT: Normocephalic, atraumatic, neck supple, trachea midline, sclera anicteric Respiratory: No accessory muscle usage, mild right sided rales on auscultation Cardiovascular: tachycardia, regular rhythm, S1 and S2 present, no murmurs/rubs/ gallops/clicks appreciated, tenderness to palpation of sternal region GI/abdominal: Nondistended, nontender, soft, normal bowel sounds, no peritoneal signs Extremities: No calf tenderness, noncyanotic, no pedal edema appreciated, warm, lower extremity pulses palpable and symmetrical Neurological: Alert and oriented 3, no facial droop, no focal deficits Skin: Dry, intact, normal color Internal Medicine: Result - Labs CBC & Chem 7: 01/09/17 07:31 01/09/17 07:31 Labs: Short CBC 01/09/17 Range/Units 07:31 WBC 14.4 H (4.3-11.1) K/mcL Hgb 12.8 L (12.9-16.9) g/dL Hct 40.1 (37.5-50.1) % Plt Count 449 H (140-400) K/mcL Neutrophils # 11.6 H (1.6-8.9) K/mcL BMP 01/09/17 07:31 Sodium 137 Potassium 3.9 Chloride 107 Carbon Dioxide 21 BUN 8 Creatinine 0.73 Glucose 94 Calcium 9.0 - ABG Interpretation ABG results: PT/INR, D-dimer PT 17.1 Seconds (9.4-12.1) H 01/08/17 04:05 - Impressions Impressions Abdomen/Pelvis CT 01/08/17 18:30 IMPRESSION: Multiple thoracic lymph nodes in the hilar and subcarinal regions are noted. There is associated narrowing of the right lower lobe airways and multifocal right lower lobe airspace disease which is likely pneumonia. Small right and minimal left pleural effusions Small lung nodules at the left lung base. Multiple small lymph nodes in the abdomen and the pelvis, as described. No pathologic enlargement is noted. Otherwise no acute abnormality in the abdomen or the pelvis. Fleischner Society guidelines for follow-up and management of incidentally detected pulmonary nodules: Single Solid Nodule: Nodule size less than 6 mm In a low-risk patient, no routine follow-up. In a high-risk patient, optional CT at 12 months. Nodule size equals 6-8 mm In a low-risk patient, CT at 6-12 months, then consider CT at 18-24 months. In a high-risk patient, CT at 6-12 months, then CT at 18-24 months. Nodule size greater than 8 mm In a low-risk patient, consider CT, PET/CT, or tissue sampling at 3 months. In a high-risk patient, consider CT, PET/CT, or tissue sampling at 3 months. Multiple Solid Nodules: Nodule size less than 6 mm In a low-risk patient, no routine follow-up. In a high-risk patient, optional CT at 12 months. Nodule size equals 6-8 mm In a low-risk patient, CT at 3-6 months, then consider CT at 18-24 months. In a high-risk patient, CT at 3-6 months, then CT at 18-24 months. Nodule size greater than 8 mm In a low-risk patient, CT at 3-6 months, then consider CT at 18-24 months. In a high-risk patient, CT at 3-6 months, then CT at 18-24 months. - Low risk patients include individuals with minimal or absent history of smoking and other known risk factors. - High risk patients include individuals with a history or smoking or known risk factors. Radiology 2017 http://pubs.rsna.org/doi/full/10.1148/radiol.5465807964 D/ / Vaughn Linder / Vaughn Linder Interpreting Provider: Vaughn Linder Consult Discharge Plan - Plan Referrals: Jasmina Tellez ACCOUNT RECEIVABLE ASSOCIATE [Advanced Practice Nurse] - 01/15/17 1:15 pm <Vimal Collier P - Last Filed: 01/09/17 18:11> Date of Encounter: 01/09/17 - Constitutional Vitals: Temp Pulse Resp BP Pulse Ox 125 F H 135 16 156/79 96 01/09/17 16:55 01/09/17 17:05 01/09/17 17:05 01/09/17 17:05 01/09/17 17:05 Internal Medicine: Result - Labs CBC & Chem 7: 01/09/17 07:31 01/09/17 07:31 Labs: Short CBC 01/09/17 Range/Units 07:31 WBC 14.4 H (4.3-11.1) K/mcL Hgb 12.8 L (12.9-16.9) g/dL Hct 40.1 (37.5-50.1) % Plt Count 449 H (140-400) K/mcL Neutrophils # 11.6 H (1.6-8.9) K/mcL BMP 01/09/17 07:31 Sodium 137 Potassium 3.9 Chloride 107 Carbon Dioxide 21 BUN 8 Creatinine 0.73 Glucose 94 Calcium 9.0 - ABG Interpretation ABG results: PT/INR, D-dimer PT 17.1 Seconds (9.4-12.1) H 01/08/17 04:05 - Impressions Impressions Abdomen/Pelvis CT 01/08/17 18:30 IMPRESSION: Multiple thoracic lymph nodes in the hilar and subcarinal regions are noted. There is associated narrowing of the right lower lobe airways and multifocal right lower lobe airspace disease which is likely pneumonia. Small right and minimal left pleural effusions Small lung nodules at the left lung base. Multiple small lymph nodes in the abdomen and the pelvis, as described. No pathologic enlargement is noted. Otherwise no acute abnormality in the abdomen or the pelvis. Fleischner Society guidelines for follow-up and management of incidentally detected pulmonary nodules: Single Solid Nodule: Nodule size less than 6 mm In a low-risk patient, no routine follow-up. In a high-risk patient, optional CT at 12 months. Nodule size equals 6-8 mm In a low-risk patient, CT at 6-12 months, then consider CT at 18-24 months. In a high-risk patient, CT at 6-12 months, then CT at 18-24 months. Nodule size greater than 8 mm In a low-risk patient, consider CT, PET/CT, or tissue sampling at 3 months. In a high-risk patient, consider CT, PET/CT, or tissue sampling at 3 months. Multiple Solid Nodules: Nodule size less than 6 mm In a low-risk patient, no routine follow-up. In a high-risk patient, optional CT at 12 months. Nodule size equals 6-8 mm In a low-risk patient, CT at 3-6 months, then consider CT at 18-24 months. In a high-risk patient, CT at 3-6 months, then CT at 18-24 months. Nodule size greater than 8 mm In a low-risk patient, CT at 3-6 months, then consider CT at 18-24 months. In a high-risk patient, CT at 3-6 months, then CT at 18-24 months. - Low risk patients include individuals with minimal or absent history of smoking and other known risk factors. - High risk patients include individuals with a history or smoking or known risk factors. Radiology 2017 http://pubs.rsna.org/doi/full/10.1148/radiol.9917114717 D/ / Vaughn Linder / Vaughn Linder Interpreting Provider: Vaughn Linder - Attending Attestation I examined this patient and my medical decision-making was reviewed with the PROJECT ENG/PA/Advanced Practice Nurse/Resident Physician. I agree with the documented findings, disposition and treatment plan as described except to the extent set forth below. pulmonary input appreciated.
--- NOTE | 2017-01-09 15:38 | Pulmonology Progress Note ---
Date of Encounter: 01/09/17 Time of Encounter: 11:30 Assessment and Plan (1) Mediastinal mass Current Visit: Yes Status: Acute Large subcarinal mass with differential does include various malignancies including lymphoma, germ cell tumors. Benign etiology differential includes infection, particularly endemic fungus, versus sarcoidosis. Reaffirmed plan with patient for elective diagnostic bronchoscopy with needle aspiration of the subcarinal mass. Patient is agreeable. Plan for procedure at approximately 3 PM today. Subjective Principal diagnosis: Mediastinal mass Interval history: Patient evaluated yesterday for incidentally discovered mediastinal mass. Was counseled on the option of bronchoscopy with needle aspiration of the mass. Patient was agreeable plan was made for bronchoscopy at approximately 3 PM this afternoon. This morning patient continues to report chest pain with intermittent dyspnea and wheezing. Was given as needed morphine for pain. States the pain is relatively well controlled with morphine. No other new complaints this morning. Objective PUL Vital signs: Last Vital Signs Temp 98.8 F 01/09/17 15:29 Pulse 90 01/09/17 15:29 Resp 16 01/09/17 15:29 BP 146/77 01/09/17 15:29 Pulse Ox 95 01/09/17 15:29 General appearance: lethargic Effort: normal Auscultation: bilateral: clear Cardiovascular: regular rate and rhythm Gastrointestinal: soft, non-tender Integumentary: normal Extremities: no cyanosis Musculoskeletal: no deformities mood appropriate Results - Laboratory Findings CBC and BMP: 01/09/17 07:31 01/09/17 07:31 PT/INR, D-dimer PT 17.1 Seconds (9.4-12.1) H 01/08/17 04:05 Abnormal lab findings: Abnormal lab results WBC 14.4 K/mcL (4.3-11.1) H 01/09/17 07:31 Hgb 12.8 g/dL (12.9-16.9) L 01/09/17 07:31 MCH 27.1 pg (28.0-33.3) L 01/09/17 07:31 Plt Count 449 K/mcL (140-400) H 01/09/17 07:31 Neutrophils # 11.6 K/mcL (1.6-8.9) H 01/09/17 07:31 ESR 121 mm/hr (0-10) H 01/08/17 04:05 PT 17.1 Seconds (9.4-12.1) H 01/08/17 04:05 Alkaline Phosphatase 136 Units/L (38-126) H 01/08/17 04:05 Albumin 2.8 g/dL (3.5-5.0) L 01/08/17 04:05 Globulin 4.4 g/dL (2.4-3.5) H 01/08/17 04:05 Albumin/Globulin Ratio 0.6 (1.1-2.2) L 01/08/17 04:05 - Clinical Findings Intake & Output: Intake & Output 01/08/17 01/09/17 01/09/17 23:59 07:59 15:59 Intake Total 1440 / 1440 0 / 0 1150 / 1150 Balance 1440 / 1440 0 / 0 1150 / 1150 Weight 125 kg Consult Discharge Plan - Plan Referrals: Jasmina Tellez CNP [Advanced Practice Nurse] - 01/15/17 1:15 pm
[2017-01-09] MEDS ORDERED: *HR* Midazolam HCl 5 MG/5 ML VIAL IVP ONE (15:59)
[2017-01-09] MEDS ORDERED: *HR* FentaNYL (PF) 100 MCG/2 ML VIAL ONE (16:00)
[2017-01-09] MEDS ORDERED: Lidocaine Viscous Oral Soln 15 ML SOLUTION ONE (16:00)
[2017-01-09] MEDS: *HR* Midazolam HCl 5 MG/5 ML VIAL IVP PRN ×2 (16:30→16:37)
[2017-01-09] MEDS: *HR* FentaNYL (PF) 100 MCG/2 ML VIAL IVP PRN ×4 (16:30→16:55)
--- NOTE | 2017-01-09 18:44 | Procedure Note ---
Date of procedure: 01/09/17 Pre-op diagnosis: Mediastinal mass Post-op diagnosis: same Procedure: Informed consent obtained. Final timeout performed the patient was identified by phone limited at . IV sedation was administered in a stepwise fashion until patient was compliant for procedure. The bronchoscope was introduced orally. The vocal cords easily visualized and treated with to 1 mL aliquots of 2% lidocaine. The scope was passed through the cords to the kendall was also treated topically with 2% lidocaine. [employer] needle was passed through the channel and approximated to the kendall. It proved very difficult to pass the needle through the airway into the lymph node. 5 attempts were made to make passes with the needle into the lymph node. On one attempt needle appeared to partially lymph node but on-site cytology reported only reactive bronchial cells. Sedation became challenging and patient was coughing frequently and reached for the bronchoscope. Due to suboptimal sedation and difficulty passing the needle into the target lymph node, the procedure was terminated. The vocal cords were visualized to the scope was withdrawn and were normal in appearance and motion. Patient was then taken to recovery and there is no evidence complication.
[2017-01-09] MEDS: *HR* OxyCODONE/APAP 5/325 TABLET PO PRN (19:49)
[2017-01-09] MEDS: GuaiFENesin/Codeine Oral Soln 5 ML UDC PO PRN (19:49)
[2017-01-10] MEDS: *HR* OxyCODONE/APAP 5/325 TABLET PO PRN ×3 (03:53→20:16)
[2017-01-10 05:41] LABS: Basophils % 0.3 %; Eosinophils # 0.2 K/mcL (0.0-0.6); Eosinophils % 1.9 %; Hematocrit 38.6 % (37.5-50.1); Hemoglobin 12.5 g/dL (12.9-16.9); Immature Granulocytes % 0.8 % (0-4); Lymphocytes # 1.4 K/mcL (0.6-4.6); Lymphocytes % 11.6 %; Mean Corpuscular HGB Conc 32.4 g/dL (31.6-35.5); Mean Corpuscular Hemoglobin 27.7 pg (28.0-33.3); Mean Corpuscular Volume 85.6 fL (83.0-100.0); Mean Platelet Volume 10.6 fL (9.4-12.4); Monocytes # 0.7 K/mcL (0.0-1.3); Monocytes % 5.8 %; Neutrophils # 9.4 K/mcL (1.6-8.9); Platelet Count 460 K/mcL (140-400); Red Blood Count 4.51 M/mcL (4.19-5.50); Segmented Neutrophils % 79.6 %
[2017-01-10] MEDS: *HR* HYDROcodone/Acet 5/325 mg TABLET PO PRN (09:35)
[2017-01-10] MEDS: 0.9 % Sodium Chloride 1,000 ML IVC SCH ×2 (09:35→22:52)
[2017-01-10] MEDS: *HR* Heparin 5,000 UNIT/ML VIAL SQ SCH ×2 (09:35→17:06)
[2017-01-10] MEDS: Levofloxacin 750 MG/150 ML 750 MG/150 ML BAG IVPB SCH (09:36)
--- NOTE | 2017-01-10 10:22 | Cardiothoracic Consult Note ---
Date of Encounter: 01/10/17 Time of Encounter: 10:20 Assessment and Plan (1) Mediastinal mass Current Visit: Yes Status: Acute The patient has a large subcarinal mass which is causing the patient's constitutional symptoms. He underwent fiberoptic bronchoscopy with transbronchial biopsy yesterday; however, this failed to provide adequate tissue for diagnosis. He will undergo a right thoracotomy and biopsy of the subcarinal mass tomorrow. This procedure will be performed by Dr. Mao Brown. The assessment and plan as outlined above was discussed with the patient and/or family members who expressed understanding and agreement. All questions were answered. - History of Present Illness Consult date: 01/10/17 Requesting physician: Vimal Collier Consult reason: Subcarinal mass evaluation. Chief complaint: Chest pain and productive cough. History of present illness: Mr. Renteria is a 26 year old otherwise healthy man who developed substernal chest pain, back pain, and shortness of breath in early December 2016. Prior to that time he had no complaints. The patient had the chest pain and back pain for approximately 4 days prior to being evaluated at [facility] emergency department on December 31, 2016. A chest x-ray performed that time showed no active pulmonary disease. A chest CT was ordered given the patient's presenting complaints, and this study revealed a 4.6 x 3.8 cm subcarinal mass impinging upon the right lower lobe bronchus. In addition, the patient had bilateral hilar lymphadenopathy. He was recommended that the patient follow-up with his primary care physician. After discharge the patient could not be seen by his primary care physician until the middle of January. He began experiencing a nonproductive cough and night sweats. He also complains of some weight loss, though he is unsure exactly how much his weight has decreased. He was reevaluated [facility] and admitted for further workup. He underwent fiberoptic bronchoscopy and transbronchial biopsy of the mass; however, the tissue specimens did not reveal a specific diagnosis. I have been asked to evaluate the patient for possible thoracotomy and biopsy. Past Med Surg Social Fam HX - Past Medical History Medical history: no medical history Psychiatric history: no psych history - Past Surgical History Surgical History: cholecystectomy - Social History Smoking Status: Never smoker Smokeless Tobacco Status: Yes (vapor) Alcohol use: none Drug use: none Current living situation: Home - Independent Activity Level: Independent ambulation Recent Out of Country Travel Within the Last 8 Weeks: No Exposure or Possible Exposure to Illness During Travel: No Medications and Allergies No Known Home Drugs 01/07/17 [History] Allergies No Known Allergies Allergy (Verified 12/31/16 18:43) All Systems Review: A 10-system review of systems was performed and is negative for pertinent findings except as documented above in the HPI. Physical Examination Vital Signs, Last 4 Hours Temp Pulse Resp BP Pulse Ox 01/10/17 07:13 98.4 F 84 16 138/74 92 General: Conversant, No Apparent Distress HEENT: Atraumatic, Normocephaly, Trachea midline Neck: No JVD, Normal carotid pulses Cardiac: Reg Rate and Rhythm, Normal S1 and S2, No Murmur Lungs: Normal Breath Sounds, No Wheeze, Rales, Rhonchi Neuro: Alert and responsive, No focal deficits noted Vascular: Normal capillary refill Abdomen: Soft, Non-tender Skin: No rashes noted on visualized skin Musculoskeletal: No Chest Wall Tenderness Extremities: No Clubbing, No Cyanosis, No Edema, Normal Pulses Results 01/10/17 05:10 01/09/17 07:31 Lab Results, Last 24 hours 01/10/17 05:10 WBC 11.8 H Hgb 12.5 L Hct 38.6 Plt Count 460 H Consult Discharge Plan - Plan Referrals: Jasmina Tellez CNP [Advanced Practice Nurse] - 01/15/17 1:15 pm
--- NOTE | 2017-01-10 10:45 | Oncology Inp Progress Note ---
Date of Encounter: 01/10/17 Time of Encounter: 11:45 (1) Mediastinal mass Current Visit: Yes Status: Acute Assessment and plan: Significant mediastinal lymphadenopathy. This appears to be causing some compression on his esophagus with associated dysphagia as well as early airway compression. He has reproducible chest pain and mild SOB. The differential diagnosis includes lymphoma, germ cell tumor and even esophageal cancer. EBUS aborted. Thoracotomy tomorrow. AFP, hCG pending. CEA and LDH normal. CT A/P without significant finding. Further treatment recommendations will be based on the above. I appreciate the opportunity to care for this patient. We will continue to follow. Please call [phone] for any questions. Oncology: Subj Interval history: EBUS was aborted and no viable biopsy obtained. CT surgery consulted and thoractomy planned tomorrow. A bit sore from procedure. Cough is stable. Afebrile. No other new aches or pains. - Constitutional Vitals: Vital Signs Temp Pulse Resp BP Pulse Ox 01/10/17 07:13 98.4 F 84 16 138/74 92 01/10/17 05:23 98.9 F 95 16 138/79 93 01/10/17 00:07 98.9 F 92 16 134/76 95 01/09/17 21:16 98.9 F 102 16 133/72 93 01/09/17 19:31 96 01/09/17 17:05 135 16 156/79 96 01/09/17 17:00 123 16 170/73 97 01/09/17 16:55 125 F H 150 16 178/73 97 01/09/17 16:50 136 16 192/86 97 01/09/17 16:45 109 16 158/78 98 01/09/17 16:40 111 16 158/78 97 01/09/17 16:35 114 16 145/81 98 01/09/17 16:30 114 16 145/81 98 01/09/17 16:26 98.8 F 107 16 155/82 01/09/17 16:24 98.8 F 107 16 155/82 94 01/09/17 15:29 98.8 F 90 16 146/77 95 01/09/17 10:59 99.2 F 91 16 132/67 94 Intake and Output 01/10/17 01/10/17 01/10/17 00:59 08:59 16:59 Intake Total 1240 / 1240 1000 / 1000 120 / 120 Balance 1240 / 1240 1000 / 1000 120 / 120 Intake: IV Fluids 1000 / 1000 1000 / 1000 0.9 % Sodium Chloride 1, 1000 / 1000 1000 / 1000 000 ML @ 100 mls/hr IVC . Q10H GE Rx#:[id number] Oral 240 / 240 0 / 0 120 / 120 Other: Meal Breakfast Percent of Meal Consumed 30% # Voids 0 0 Weight 123.3 kg Patient Weight 01/11/17 00:59 Weight 123.3 kg - Head Head exam: Present: atraumatic, normal inspection, normocephalic - Eye Eye exam: Present: conjuntiva pink, sclera anicteric - ENT ENT exam: Present: mucous membranes moist, normal oropharynx - Neck Neck exam: Present: full ROM, normal inspection - Respiratory Respiratory exam: Present: CTAB - Cardiovascular Cardiovascular exam: Present: RRR - GI/Abdominal GI/Abdominal exam: Present: normal bowel sounds, soft - Extremities Exam Extremities exam: Present: normal inspection - Neurological Exam Neurological exam: Present: CN II-XII intact, oriented X3 Oncology: Obj Data - Labs CBC & Chem 7: 01/10/17 05:10 01/09/17 07:31 Labs: Laboratory Results - last 24 hr 01/10/17 05:10 WBC 11.8 H RBC 4.51 Hgb 12.5 L Hct 38.6 MCV 85.6 MCH 27.7 L MCHC 32.4 RDW 13.0 Plt Count 460 H MPV 10.6 Immature Gran % 0.8 Seg Neutrophils % 79.6 Lymphocytes % 11.6 Monocytes % 5.8 Eosinophils % 1.9 Basophils % 0.3 Neutrophils # 9.4 H Lymphocytes # 1.4 Monocytes # 0.7 Eosinophils # 0.2 Basophils # 0.0 - ABG Interpretation ABG results: PT/INR, D-dimer PT 17.1 Seconds (9.4-12.1) H 01/08/17 04:05 Consult Discharge Plan - Plan Referrals: Jasmina Tellez [employer] [Advanced Practice Nurse] - 01/15/17 1:15 pm
[2017-01-10 11:21] LABS: AFP Tumor Marker Non-Pregnant 2 ng/mL (0-9)
--- NOTE | 2017-01-10 12:45 | Internal Med Progress Note ---
<Senthil Deleon - Last Filed: 01/10/17 12:42> Date of Encounter: 01/10/17 Time of Encounter: 08:45 - Assessment and plan (1) Mediastinal mass Current Visit: Yes Status: Acute Assessment and plan: Recent CTA chest shows a posterior mediastinal mass in the sub-carinal region measuring 3.8x4.6 with bilateral hilar adenopathy. This finding is concerning as it could possibly represent a neoplastic process. His pleuritic chest pain could be related to his underlying lung pathology. His subjective fevers, anoerexia, diaphoresis, and fatigue are concerning for possible neoplastic process as well. Pulmonolgy performed bronchocscopy yesterday afternoon, unfortunately adequate tissue could not be obtained Cardiothoracic surgery has been consulted to assist in biopsy of patient mass Oncology has also been consulted to help asses the malignancy concern Continue levaquin day 4 Continue albuerol Continue IVF with 100 mls/hr NS Oxycodone/Acetaminophen and morphine for mild pain (2) SIRS (systemic inflammatory response syndrome) Current Visit: Yes Status: Acute Assessment and plan: Patient presents with several SIRS criteria (tachycardia, leukocytosis, and fever). He might have an infection in his lung, making his current problem Sepsis, but it is unconfirmed at the moment and the findings on CT could represent the changes seen. He received 1 liter of fluids at presentation and is being continued on IVF with 100 mls/hr NS currently Continuing IV levoquin Continued tachycardia and leukocytosis today, though leukocytosis is improving somewhat (3) Pulmonary infiltrate Current Visit: Yes Status: Acute Assessment and plan: Nodular Infiltrates noted on CTA from 12/31/16. This could represent infection. Will cover with empiric antibiotics for now. Continue IV levofloxacin as above (4) Pleural effusion Current Visit: Yes Status: Acute Assessment and plan: Small pleural effusion noted on CT Chest. Plan as above (5) Chest pain Current Visit: Yes Status: Acute Assessment and plan: Pleuritic chest pain likely related to cough and mediastinal mass 5/325 Oxycodone/acetaminophen 2 mg IV morphine Q4hr prn Qualifiers: Chest pain type: unspecified Qualified Code(s): R07.9 - Chest pain, unspecified (6) DVT prophylaxis Current Visit: Yes Status: Acute Assessment and plan: 5000 U heparin SQ TID - Subjective Interval history: Patient reports having continued pain in his chest, made worse with coughing, but does report that the morphine and oxycodone had worked reasonably well. Bronchoscopy was performed yesterday, but no viable tissue samples were able to be obtained. - Constitutional Vitals: Temp Pulse Resp BP Pulse Ox 97.7 F 84 17 140/70 93 01/10/17 11:22 01/10/17 11:22 01/10/17 11:22 01/10/17 11:22 01/10/17 11:22 Exam: General: Cooperative, pleasant, no acute distress, alert and oriented 3, answers questions appropriately HEENT: Normocephalic, atraumatic, neck supple, trachea midline, sclera anicteric Respiratory: No accessory muscle usage, mild right sided rales on auscultation Cardiovascular: tachycardia, regular rhythm, S1 and S2 present, no murmurs/rubs/ gallops/clicks appreciated, tenderness to palpation of sternal region GI/abdominal: Nondistended, nontender, soft, normal bowel sounds, no peritoneal signs Extremities: No calf tenderness, noncyanotic, no pedal edema appreciated, warm, lower extremity pulses palpable and symmetrical Neurological: Alert and oriented 3, no facial droop, no focal deficits Skin: Dry, intact, normal color Internal Medicine: Result - Labs CBC & Chem 7: 01/10/17 05:10 01/09/17 07:31 Labs: Short CBC 01/10/17 Range/Units 05:10 WBC 11.8 H (4.3-11.1) K/mcL Hgb 12.5 L (12.9-16.9) g/dL Hct 38.6 (37.5-50.1) % Plt Count 460 H (140-400) K/mcL Neutrophils # 9.4 H (1.6-8.9) K/mcL - ABG Interpretation ABG results: PT/INR, D-dimer PT 17.1 Seconds (9.4-12.1) H 01/08/17 04:05 Consult Discharge Plan - Plan Referrals: Jasmina Tellez CNP [Advanced Practice Nurse] - 01/15/17 1:15 pm <Vimal Collier - Last Filed: 01/10/17 15:17> Date of Encounter: 01/10/17 - Constitutional Vitals: Temp Pulse Resp BP Pulse Ox 97.7 F 84 17 140/70 93 01/10/17 11:22 01/10/17 11:22 01/10/17 11:22 01/10/17 11:22 01/10/17 11:22 Internal Medicine: Result - Labs CBC & Chem 7: 01/10/17 05:10 01/09/17 07:31 Labs: Short CBC 01/10/17 Range/Units 05:10 WBC 11.8 H (4.3-11.1) K/mcL Hgb 12.5 L (12.9-16.9) g/dL Hct 38.6 (37.5-50.1) % Plt Count 460 H (140-400) K/mcL Neutrophils # 9.4 H (1.6-8.9) K/mcL - ABG Interpretation ABG results: PT/INR, D-dimer PT 17.1 Seconds (9.4-12.1) H 01/08/17 04:05 - Attending Attestation I examined this patient and my medical decision-making was reviewed with the FREIGHT AGENT/PA/Advanced Practice Nurse/Resident Physician. I agree with the documented findings, disposition and treatment plan as described except to the extent set forth below. reason for CTS consult: persistent large subcarinal LN. Unable to get tissue diagnosis via TBB/EBUS. patient prefers definitive approach to get tissue. CTS input appreciated.
[2017-01-10] MEDS ORDERED: Benzonatate 100 MG CAPSULE PO PRN (13:17)
--- NOTE | 2017-01-10 15:16 | Anesthesia Evaluation PreOp ---
Date of Encounter: 01/11/17 Time of Encounter: 07:47 - Past History Planned Operation: right thoracotomy with biopsy Cardiac History: Denies any Significant Hx Pulmonary History: Other (worsening cough with chest pain and a subcarinal mass pressing on right bronchus No smoking history) Other Medical History: Denies Any Significant HX Anesthesia History: No Prior Anesthetic Complications, Past Anesthesia ( cholecystectomy) Alcohol Use: none Drug use: none Medications and Allergies No Known Home Drugs 01/07/17 [History] Allergies No Known Allergies Allergy (Verified 12/31/16 18:43) - Meds/Allergy Pre-op Review Medications Reviewed: Yes Allergies Reviewed: Yes Beta Blockers on Current Med List: No Anesthesia Results - Labs 01/11/17 00:56 01/11/17 00:56 Anesthesia Exam Selected Entries 01/10/17 11:22 Temperature 97.7 F Pulse Rate 84 Respiratory Rate 17 O2 Sat by Pulse Oximetry 93 Height: 1.83m (72in) Weight: 123kg (270) NPO (# of Hours): 8 Pain Scale: 0 Pain Scale Used: Numeric (1 - 10) - HEENT Pupil (Motor): EOMI Mallampati: II Teeth: Normal Oral Opening: Less than or equal to 3 - LOAN EXAMINER LOC: Oriented LOAN EXAMINER Motor: Normal RUE, Normal LUE, Normal RLE, Normal LLE, Normal Face LOAN EXAMINER Sensory: Normal: RUE, LUE, RLE, LLE, Face - Cardiac Rhythm: Regular Murmur: None - Pulmonary Breath Sounds: bilateral Clear Respiratory Effort: Symmetrical Anesthesia Assess/Plan ASA Score: 2 Modified Shannan Scale for Level of Consciousness: Cooperative, oriented, and tranquil Anesthetic Plan: General Monitoring Plan: Standard Monitors, A-Line Recovery Plan: ICU (Discussed risks of GA. Will start without a-line. Patient refused epidural. Will try to avoid ICU if able. Questions answered and agrees to proceed.)
--- NOTE | 2017-01-10 15:19 | Pulmonology Progress Note ---
Date of Encounter: 01/10/17 Time of Encounter: 11:20 Assessment and Plan (1) Mediastinal mass Current Visit: Yes Status: Acute Large subcarinal mass with differential does include various malignancies including lymphoma, germ cell tumors. Benign etiology differential includes infection, particularly endemic fungus, versus sarcoidosis. Underwent unsuccessful attempts at bronchoscopy with fine-needle aspiration yesterday. Recommend consult with thoracic surgery for biopsy of subcarinal and/or hilar lymph nodes. Discussed this recommendation with the patient and he is agreeable to this plan. Pulmonary medicine will sign off please reconsult if further questions Subjective Principal diagnosis: Mediastinal mass Interval history: Patient evaluated for incidentally discovered mediastinal mass. Underwent diagnostic flexible bronchoscopy yesterday with attempted fine-needle aspiration of subcarinal node/mass. Procedure was unsuccessful and did not yield tissue specimen. Discussed this, the patient this morning. Patient is notified today. Patient has no new complaints this morning. Objective PUL Vital signs: Last Vital Signs Temp 97.7 F 01/10/17 11:22 Pulse 84 01/10/17 11:22 Resp 17 01/10/17 11:22 BP 140/70 01/10/17 11:22 Pulse Ox 93 01/10/17 11:22 General appearance: no acute distress Effort: normal Extremities: no cyanosis normal mental status, non-focal exam mood appropriate Results - Laboratory Findings CBC and BMP: 01/10/17 05:10 01/09/17 07:31 PT/INR, D-dimer PT 17.1 Seconds (9.4-12.1) H 01/08/17 04:05 Abnormal lab findings: Abnormal lab results WBC 11.8 K/mcL (4.3-11.1) H 01/10/17 05:10 Hgb 12.5 g/dL (12.9-16.9) L 01/10/17 05:10 MCH 27.7 pg (28.0-33.3) L 01/10/17 05:10 Plt Count 460 K/mcL (140-400) H 01/10/17 05:10 Neutrophils # 9.4 K/mcL (1.6-8.9) H 01/10/17 05:10 ESR 121 mm/hr (0-10) H 01/08/17 04:05 PT 17.1 Seconds (9.4-12.1) H 01/08/17 04:05 Alkaline Phosphatase 136 Units/L (38-126) H 01/08/17 04:05 Albumin 2.8 g/dL (3.5-5.0) L 01/08/17 04:05 Globulin 4.4 g/dL (2.4-3.5) H 01/08/17 04:05 Albumin/Globulin Ratio 0.6 (1.1-2.2) L 01/08/17 04:05 - Clinical Findings Intake & Output: Intake & Output 01/09/17 01/10/17 01/10/17 23:59 07:59 15:59 Intake Total 1240 / 1240 0 / 0 1240 / 1240 Balance 1240 / 1240 0 / 0 1240 / 1240 Weight 123.3 kg Consult Discharge Plan - Plan Referrals: Jasmina Tellez CNP [Advanced Practice Nurse] - 01/15/17 1:15 pm
[2017-01-10] MEDS ORDERED: *HR* Morphine 2 MG/ML SYRINGE IVP PRN (15:28)
[2017-01-11] MEDS: *HR* Heparin 5,000 UNIT/ML VIAL SQ SCH ×4 (00:09→23:22)
[2017-01-11] MEDS: *HR* OxyCODONE/APAP 5/325 TABLET PO PRN ×3 (00:13→21:05)
[2017-01-11 01:14] LABS: Basophils # 0.1 K/mcL (0.0-0.2); Basophils % 0.5 %; Eosinophils # 0.3 K/mcL (0.0-0.6); Eosinophils % 3.3 %; Hemoglobin 13.8 g/dL (12.9-16.9); Immature Granulocytes % 0.8 % (0-4); Lymphocytes # 1.7 K/mcL (0.6-4.6); Mean Corpuscular HGB Conc 32.1 g/dL (31.6-35.5); Mean Corpuscular Hemoglobin 27.2 pg (28.0-33.3); Mean Corpuscular Volume 84.6 fL (83.0-100.0); Mean Platelet Volume 10.1 fL (9.4-12.4); Monocytes # 0.5 K/mcL (0.0-1.3); Monocytes % 5.6 %; Neutrophils # 6.5 K/mcL (1.6-8.9); Platelet Count 464 K/mcL (140-400); Red Blood Count 5.08 M/mcL (4.19-5.50); Red Cell Distribution Width 12.9 % (11.5-14.5); Segmented Neutrophils % 70.8 %
[2017-01-11 01:26] LABS: BUN/Creatinine Ratio 11 (6-26); Blood Urea Nitrogen 8 mg/dL (8-26); Calcium 9.4 mg/dL (8.6-10.8); Carbon Dioxide 26 mEq/L (19-29); Chloride 104 mEq/L (98-109); Glucose 82 mg/dL (70-99); Osmolality,Calculated 285 (280-300); Potassium 3.8 mEq/L (3.5-4.5); Sodium 139 mEq/L (136-145); eGFR For African Americans > 60 (> 60); eGFR For Non-African Americans > 60 (> 60)
[2017-01-11] MEDS ORDERED: *HR* Phenylephrine 10 MG/ML VIAL ONE (06:53)
[2017-01-11] MEDS ORDERED: *HR* Midazolam HCl 5 MG/5 ML VIAL IVP ONE (06:53)
[2017-01-11] MEDS ORDERED: *HR* Rocuronium Bromide 50 MG/5 ML VIAL ONE ×3 (06:53→09:48)
[2017-01-11] MEDS ORDERED: *HR* FentaNYL (PF) 250 MCG/5 ML VIAL ONE (06:53)
[2017-01-11] MEDS ORDERED: *HR* Propofol 200 MG/20 ML VIAL IVP ONE (06:54)
[2017-01-11] MEDS ORDERED: ceFAZolin 3,000 MG in D5% in Water 100 ML IVPB ONE (07:00)
[2017-01-11] MEDS ORDERED: Dexamethasone 4 MG/ML VIAL ONE (08:32)
[2017-01-11] MEDS ORDERED: Ondansetron 4 MG/2 ML VIAL ONE (08:32)
[2017-01-11] MEDS ORDERED: *HR* Morphine 10 MG/ML VIAL ONE ×2 (08:46→09:56)
[2017-01-11] MEDS ORDERED: Ketorolac 30 MG/ML VIAL ONE (09:56)
[2017-01-11] MEDS ORDERED: Naloxone 0.4 MG/ML INJ IVP PRN (11:27)
[2017-01-11] MEDS ORDERED: D5% in Water 1,000 ML IVC PRN (11:31)
[2017-01-11] MEDS ORDERED: Dextrose Gel 15 GM PO PRN ×2 (11:31)
[2017-01-11] MEDS ORDERED: *HR* Dextrose 50 % in Water (Syg) 50 ML SYRINGE IVP PRN (11:31)
[2017-01-11] MEDS ORDERED: *HR* HYDROmorphone 20 MG/20 ML PCA IVC PRN (11:32)
--- NOTE | 2017-01-11 11:43 | Operative Note ---
Date of procedure: 01/11/17 Procedure in Detail: Preoperative diagnosis. Subcarinal mass. Postoperative diagnosis. Same. Procedures. Right thoracotomy with biopsy of the hilar and mediastinal lymph nodes and biopsy of the subcarinal mass. Surgeon. Dr. Mao Brown. Personal Caregiver. Kingston Long. Anesthesia. Dr. Jaiden Schmitz. The patient is a young 46-year-old gentleman who presented with constitutional symptoms. He was found on CT scan of the chest to have a subcarinal mass. He has been seen by oncology and also by pulmonology. He did undergo endoscopic bronchial ultrasound-guided biopsies of the subcarinal mass, but these were negative. He was referred for open biopsy for diagnosis. He was brought to the operating room where he underwent general anesthetic and placement of a double-lumen endotracheal tube. He was prepped and draped with the right side up. A standard right posterolateral thoracotomy was performed. Serratus anterior and latissimus dorsi muscles were divided with the Bovie electrocoagulation. The lung was deflated. We initially biopsied a hilar lymph node. Dissection went into the hilum in several large pieces of lymph node were sent for frozen and permanent section. Frozen section returned negative for tumor. We took the inferior pulmonary ligament down up to the inferior pulmonary vein. This was quite thickened and sclerotic. We did biopsy and inferior pulmonary ligament lymph node. Again this was negative for cancer on frozen section. We also biopsied and upper mediastinal or upper paratracheal lymph node. This also was negative for cancer. We reflected the lung anteriorly. The patient had an obvious palpable hard mass in the subcarinal area. Numerous biopsies of this were taken. It was quite firm and vascular and bled profusely. Several biopsies were sent for frozen section and returned benign. There was fibrosis and necrosis and increased vascularity. We placed a 4-0 Prolene suture in one area to obtain hemostasis. Hemostasis was also obtained with the Bovie electrocoagulation. All biopsies returned negative for cancer. We did place fibrillar in this area. We placed intercostal blocks of quarter percent Marcaine without epinephrine for 2 or 3 interspaces above and below the incision. The lung was reinflated and all 3 lobes reinflated well. 2 chest tubes were left. A 32 angled to the diaphragm and a 36 straight to the apex. Intercostal sews were made out of #1 Vicryl in [id number] fashion. Serratus anterior and latissimus dorsi muscles were sewn with an 0 Vicryl. Subcutaneous tissues was closed with a 2-0 Vicryl. Skin was closed with a 3-0 Vicryl subcuticular stitch. The patient returned to the ICU in satisfactory condition. It should be noted that when we first entered the chest there was a fair amount of brown pleural fluid. This was sent for cytology. It was also cultured including aerobic, anaerobic, TB and fungal.
[2017-01-11] MEDS: Albuterol 2.5 MG/3 ML NEBULIZER IH SCH ×4 (12:11→23:55)
[2017-01-11 12:32] LABS: ABG Base Excess -0.7 mEq/L (-2.0 to 3.0); ABG HCO3 25.8 mEQ/L (21-27); ABG Oxygen Saturation 98 % (95-98); ABG PCO2 49 mmHg (35-45); ABG PH 7.33 pH Units (7.32-7.45); ABG PO2 111 mmHg (85-104); ABG TCO2 27.3 mEq/L (20-26); Blood Gas FiO2 80 %
[2017-01-11 12:38] LABS: Basophils # 0.1 K/mcL (0.0-0.2); Basophils % 0.3 %; Eosinophils % 0.2 %; Hematocrit 41.8 % (37.5-50.1); Hemoglobin 13.5 g/dL (12.9-16.9); Immature Granulocytes % 0.8 % (0-4); Immature Platelets 5.3 % (1.1-6.1); Lymphocytes # 0.7 K/mcL (0.6-4.6); Lymphocytes % 3.7 %; Mean Corpuscular HGB Conc 32.3 g/dL (31.6-35.5); Mean Corpuscular Hemoglobin 27.4 pg (28.0-33.3); Mean Platelet Volume 9.8 fL (9.4-12.4); Monocytes # 0.5 K/mcL (0.0-1.3); Monocytes % 2.7 %; Neutrophils # 18.1 K/mcL (1.6-8.9); Platelet Count 534 K/mcL (140-400); Red Blood Count 4.92 M/mcL (4.19-5.50); Red Cell Distribution Width 13.1 % (11.5-14.5); Segmented Neutrophils % 92.3 %
[2017-01-11 12:54] LABS: BUN/Creatinine Ratio 13 (6-26); Blood Urea Nitrogen 10 mg/dL (8-26); Calcium 9.5 mg/dL (8.6-10.8); Carbon Dioxide 25 mEq/L (19-29); Chloride 104 mEq/L (98-109); Glucose 133 mg/dL (70-99); Osmolality,Calculated 285 (280-300); Potassium 4.6 mEq/L (3.5-4.5); Sodium 137 mEq/L (136-145); eGFR For African Americans > 60 (> 60); eGFR For Non-African Americans > 60 (> 60)
[2017-01-11] MEDS: 0.9 % Sodium Chloride 1,000 ML IVC SCH ×5 (13:47→21:06)
[2017-01-11] MEDS: Levofloxacin 750 MG/150 ML 750 MG/150 ML BAG IVPB SCH (13:48)
[2017-01-11] MEDS: Ketorolac 15 MG/ML VIAL IVP SCH ×3 (13:51→23:23)
--- NOTE | 2017-01-11 13:58 | Anesthesia Evaluation Post Op ---
Date of Encounter: 01/11/17 Time of Encounter: 13:30 - Vital Signs Vital Signs: Selected Entries 01/11/17 12:30 Pulse Rate 111 Respiratory Rate 21 Blood Pressure 142/61 O2 Sat by Pulse Oximetry 96 Fraction of Inspired Oxygen 80 Oxygen Delivery Method Mechanical Ventilation - Lungs Lungs: Clear Ascult./Percussion - Airway Airway: Intubated - Cardiovascular Regular Rate (tachy but regular) - Mental Status Mental Status: Asleep with brisk response to light stimulation, Sedated - Pain Pain Scale used: Unable to assess - Nausea Vomiting Nausea Vomiting: Unable to assess - Hydration Hydration: NPO Notes: 01/11/17 13:53 Patient with spontaneous respirations but insufficient tidal volume to support oxygenation. Suspect is secondary to opioid administration during case, patient received 20 mg morphine. Patient will open eyes but falls back to sleep. Will remain intubated until able to maintain adequate ventilation.
--- NOTE | 2017-01-11 16:31 | Infectious Disease Consult ---
Date of Encounter: 01/11/17 Time of Encounter: 16:29 Assessment and Plan (1) Sepsis Status: Acute Assessment and plan: Patient has fever, tachycardia and leukocytosis I'm not sure if there is an true infection versus the mass causing the fever tachycardia and leukocytosis To be on the safe side I will start empiric antibiotic, I will stop the Ancef and do Zosyn instead. Qualifiers: Sepsis type: sepsis due to unspecified organism Qualified Code(s): A41.9 - Sepsis, unspecified organism (2) Mediastinal mass Status: Acute Assessment and plan: Subcarinal Etiology not clear Discussed at length with Dr. Brown, Intra-Op it was a hard highly vascular lesion with no purulence noted Status post thoracotomy and biopsy of the lesion and associated lymph nodes. 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 Collier (3) Respiratory failure Status: Resolved Assessment and plan: Status post surgery, Currently patient doesn't CPAP Probably extubate soon Qualifiers: Chronicity: acute Respiratory failure complication: unspecified whether with hypoxia or hypercapnia Qualified Code(s): J96.00 - Acute respiratory failure, unspecified whether with hypoxia or hypercapnia (4) Mediastinal adenopathy Status: Acute Assessment and plan: Status post biopsy. I spoke with the pathologist and S2 and GMS stain and AFB stain to the biopsy. (5) Elevated erythrocyte sedimentation rate Status: Acute Infectious Disease HPI - Data of Consult Patient: new to practice Consult date: 01/11/17 Requesting Physician: Vimal Collier MD Primary Care Provider: PCP NO - Consult Narrative Reason for consult: mediastinal mass History of present illness: Mr. Renteria is a 26 year old male Patient is a 26-year-old gentleman who was admitted to [facility] on 01/08/2017 with the Estinyl mass, we are consulted on 01/11/17 to help with the diagnosis and etiology of the mediastinal mass. Patient is currently intubated so most of the information was taken from his ex- who is at bedside and medical records. Patient initially apparently presented to [facility] on 12/31/2016 with a 4 day history of chest pain that appeared to be pleuritic in nature. Patient had a CT chest done which showed no evidence pulmonary embolism but showed a posterior the Estinyl mass in the subcarinal region. Patient was discharged home from the ER to follow-up with his PCP as an outpatient. Patient continued to have significant pain and discomfort and cough. Patient could not wait any longer for the PCPs appointment so he said come back to the emergency department. Review of system on admission revealed patient being tired having low-grade fevers and night sweats for 2 days prior to admission. He was also having dyspnea on exertion and pleuritic of chest pain. On admission patient was febrile with a MAXIMUM TEMPERATURE of 100.4, he was tachycardic and had WBC of 16.4 with neutrophilic predominance but no bands. Patients ESR was 121 with normal lactic acid. Patient was started on Levaquin on 01/08/2017 and switched to Ancef on 01/11/2017. Patient was evaluated by heme on, pulmonary and cardiothoracic. Pulmonary performed a bronchoscopy and it is in the ED by us but the tissue that was collected apparently was nonconclusive. Patient was seen by cardiothoracic surgery and he underwent a right thoracotomy with biopsy today on 01/11/2017. Initial biopsies from surgery show no malignancy. Numerous biopsies were taken and the patient had chest tube placement and is currently in the ICU still intubated. Cultures were also sent for aerobic and anaerobic TB and fungal. Currently patient laying in bed he is on spontaneous breathing but intubated away opens eyes spontaneously links yes and no ex- at bedside. On further questioning of the ex-, patient apparently has never traveled outside of the [place]. He lives with a roommate right now has cats and dogs. No other real impressive exposure history. He works at [employer] and has had exposure to inhalants CC: Vimal Collier MD Past Med Surg Social Fam HX - Past Medical History Medical history: no medical history Psychiatric history: no psych history - Past Surgical History Surgical History: cholecystectomy - Social History Smoking Status: Never smoker Smokeless Tobacco Status: Yes (vapor) Alcohol use: none Drug use: none Infectious Disease-CN:Meds No Known Home Drugs 01/07/17 [History] Allergies No Known Allergies Allergy (Verified 12/31/16 18:43) ROS unobtainable: due to endotracheal tube Exam - Constitutional Vitals: Temp Pulse Resp BP Pulse Ox 99.2 F 95 20 132/77 96 01/11/17 16:23 01/11/17 16:10 01/11/17 16:10 01/11/17 16:10 01/11/17 16:10 General appearance: no febrile Exam: intubated - Head Head exam: Present: atraumatic, normocephalic - Eye Eye exam: Present: EOMI, PERRL, sclera anicteric - ENT Additional comments: endotracheal tube intact. - Neck Additional comments: Trachea midline, no stridor - Respiratory Additional comments: Air sounds audible both lung suresh, some diffuse rhonchi, chest expanding symmetrically, chest tubes intact in the right lower chest - Cardiovascular Cardiovascular exam: Present: RRR, +S1, +S2. Absent: systolic murmur - GI/Abdominal GI/Abdominal exam: Present: hypoactive bowel sounds, soft. Absent: distended, tenderness - Extremities Exam Extremities exam: Present: normal inspection. Absent: joint swelling - Neurological Exam Neurological exam: Present: alert Additional comments: Patient intubated but no asymmetry or obvious focal deficit - Skin Skin exam: Absent: petechiae, rash Infectious Disease CN: Results - Labs CBC & Chem 7: 01/13/17 06:40 01/13/17 06:40 - VTE Documentation of Mechanical Device: Intermittent pneumatic compression device Consult Discharge Plan - Plan Referrals: NO,PCP [Primary Care Provider] -
[2017-01-11] MEDS: ceFAZolin 2,000 MG in D5% in Water 100 ML IVPB SCH (16:39)
[2017-01-11] MEDS: Insulin LISPRO 300 UNITS/3 ML VIAL SQ SCH (16:43)
[2017-01-11] MEDS ORDERED: Insulin LISPRO 300 UNITS/3 ML VIAL SQ SCH (21:00)
[2017-01-12] MEDS: Piperacillin/Tazobactam 3.375 GM in D5% in Water (Mini-Bag+) 100 ML IVPB SCH ×2 (00:05→09:04)
[2017-01-12] MEDS: *HR* OxyCODONE/APAP 5/325 TABLET PO PRN ×6 (00:57→20:57)
[2017-01-12] MEDS: 0.9 % Sodium Chloride 1,000 ML IVC SCH ×5 (01:00→20:52)
[2017-01-12] MEDS: Albuterol 2.5 MG/3 ML NEBULIZER IH SCH ×2 (03:51→07:53)
[2017-01-12] MEDS: ceFAZolin 2,000 MG in D5% in Water 100 ML IVPB SCH (04:00)
[2017-01-12] MEDS: Ketorolac 15 MG/ML VIAL IVP SCH ×4 (05:03→23:40)
[2017-01-12 06:55] LABS: Hematocrit 38.4 % (37.5-50.1); Immature Granulocytes % 0.9 % (0-4); Lymphocytes % 9.1 %; Mean Corpuscular Hemoglobin 26.9 pg (28.0-33.3); Mean Corpuscular Volume 86.9 fL (83.0-100.0); Mean Platelet Volume 10.2 fL (9.4-12.4); Platelet Count 444 K/mcL (140-400); Red Blood Count 4.42 M/mcL (4.19-5.50); Red Cell Distribution Width 13.2 % (11.5-14.5); Segmented Neutrophils % 83.1 %
[2017-01-12 06:56] LABS: Basophils % 0.3 %; Eosinophils # 0.1 K/mcL (0.0-0.6); Eosinophils % 0.6 %; Hemoglobin 11.9 g/dL (12.9-16.9); Lymphocytes # 1.3 K/mcL (0.6-4.6); Monocytes # 0.9 K/mcL (0.0-1.3); Neutrophils # 11.8 K/mcL (1.6-8.9)
[2017-01-12 07:03] LABS: BUN/Creatinine Ratio 18 (6-26); Blood Urea Nitrogen 13 mg/dL (8-26); Calcium 9.3 mg/dL (8.6-10.8); Carbon Dioxide 25 mEq/L (19-29); Chloride 102 mEq/L (98-109); Glucose 96 mg/dL (70-99); Osmolality,Calculated 282 (280-300); Potassium 4.1 mEq/L (3.5-4.5); Sodium 136 mEq/L (136-145); eGFR For African Americans > 60 (> 60); eGFR For Non-African Americans > 60 (> 60)
--- NOTE | 2017-01-12 08:35 | Cardiothoracic Progress Note ---
Date of Encounter: 01/12/17 Time of Encounter: 08:32 - Assessment and plan (1) Mediastinal mass Current Visit: Yes Status: Acute The assessment and plan as outlined above was discussed with the patient and/or family members who expressed understanding and agreement. All questions were answered. We will transfer the patient to the floor. We will leave the Hallman per the patient's request. It appears that the patient has some type of inflammation or phlegmon in the subcarinal area. Cultures are pending. Appropriate antibiotics were ordered by infectious disease. 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 Vital Signs, Last 4 Hours Temp Pulse Resp BP Pulse Ox 01/12/17 07:55 16 97 01/12/17 07:38 98.5 F 01/12/17 05:13 91 16 132/66 95 Oxgyen Flow Rate Oxygen Flow Rate (LPM) 5 Clinical Data, last 8 Hours Output, Chest Tube Drainage 0 Amount [Right Lateral Chest #2 ] Output, Chest Tube Drainage 0 Amount [Right Lateral Chest #2 ] Output, Chest Tube Drainage 0 Amount [Left Lateral Chest #1] Output, Chest Tube Drainage 48 Amount [Left Lateral Chest #1] Weight 01/10/17 01/11/17 01/12/17 23:59 23:59 23:59 Weight 123.3 kg 122 kg Lungs are clear to percussion and auscultation. Heart is in a normal sinus rhythm. His incision is healing well without signs of infection. Chest tube drainage is minimal and there is no air leak. - Labs 01/12/17 06:41 01/12/17 06:41 Lab Results, Last 24 hours 01/11/17 01/11/17 01/12/17 12:30 12:30 06:41 WBC 19.6 H D 14.2 H Hgb 13.5 11.9 L D Hct 41.8 38.4 Plt Count 534 H 444 H Sodium 137 Potassium 4.6 H Chloride 104 Carbon Dioxide 25 BUN 10 Creatinine 0.77 Glucose 133 H Calcium 9.5 01/12/17 06:41 WBC Hgb Hct Plt Count Sodium 136 Potassium 4.1 Chloride 102 Carbon Dioxide 25 BUN 13 Creatinine 0.72 Glucose 96 Calcium 9.3 - VTE Documentation of Mechanical Device: Intermittent pneumatic compression device Consult Discharge Plan - Plan Referrals: Jasmina Tellez CNP [Advanced Practice Nurse] - 01/15/17 1:15 pm
[2017-01-12] MEDS: Insulin LISPRO 300 UNITS/3 ML VIAL SQ SCH ×3 (09:06→17:22)
[2017-01-12] MEDS: *HR* Heparin 5,000 UNIT/ML VIAL SQ SCH ×3 (09:07→20:51)
[2017-01-12] MEDS: GuaiFENesin/Codeine Oral Soln 5 ML UDC PO PRN (09:08)
[2017-01-12] MEDS ORDERED: Benzonatate 100 MG CAPSULE PO PRN (09:28)
[2017-01-12] MEDS ORDERED: Albuterol 2.5 MG/3 ML NEBULIZER IH PRN (09:28)
[2017-01-12] MEDS ORDERED: *HR* HYDROmorphone 20 MG/20 ML PCA IVC PRN (09:28)
[2017-01-12] MEDS ORDERED: D5% in Water 1,000 ML IVC PRN (09:28)
[2017-01-12] MEDS ORDERED: *HR* Dextrose 50 % in Water (Syg) 50 ML SYRINGE IVP PRN (09:28)
[2017-01-12] MEDS ORDERED: Dextrose Gel 15 GM PO PRN ×2 (09:28)
[2017-01-12] MEDS ORDERED: GuaiFENesin/Codeine Oral Soln 5 ML UDC PO PRN (09:28)
[2017-01-12] MEDS ORDERED: Naloxone 0.4 MG/ML INJ IVP PRN (09:28)
[2017-01-12] MEDS ORDERED: Acetaminophen 325 MG TABLET PO PRN (09:28)
[2017-01-12] MEDS ORDERED: Piperacillin/Tazobactam 3.375 GM in D5% in Water (Mini-Bag+) 100 ML IVPB SCH (16:00)
[2017-01-12] MEDS ORDERED: Insulin LISPRO 300 UNITS/3 ML VIAL SQ SCH (21:00)
[2017-01-13] MEDS: *HR* OxyCODONE/APAP 5/325 TABLET PO PRN ×5 (00:59→21:24)
[2017-01-13] MEDS: 0.9 % Sodium Chloride 1,000 ML IVC SCH ×2 (00:59→05:11)
[2017-01-13] MEDS ORDERED: Piperacillin/Tazobactam 3.375 GM in D5% in Water (Mini-Bag+) 100 ML IVPB SCH (03:30)
[2017-01-13] MEDS: *HR* Heparin 5,000 UNIT/ML VIAL SQ SCH ×4 (05:09→19:47)
[2017-01-13] MEDS: Ketorolac 15 MG/ML VIAL IVP SCH ×3 (05:10→12:29)
[2017-01-13] MEDS ORDERED: GuaiFENesin/Codeine Oral Soln 5 ML UDC PO PRN (05:28)
[2017-01-13] MEDS ORDERED: Naloxone 0.4 MG/ML INJ IVP PRN (05:28)
[2017-01-13] MEDS ORDERED: Albuterol 2.5 MG/3 ML NEBULIZER IH PRN (05:28)
[2017-01-13] MEDS ORDERED: Acetaminophen 325 MG TABLET PO PRN (05:28)
[2017-01-13] MEDS ORDERED: 0.9 % Sodium Chloride 1,000 ML IVC SCH (05:28)
[2017-01-13] MEDS ORDERED: D5% in Water 1,000 ML IVC PRN (05:28)
[2017-01-13] MEDS ORDERED: Benzonatate 100 MG CAPSULE PO PRN (05:28)
[2017-01-13] MEDS ORDERED: Dextrose Gel 15 GM PO PRN ×2 (05:28)
[2017-01-13] MEDS ORDERED: *HR* HYDROmorphone 20 MG/20 ML PCA IVC PRN (05:28)
[2017-01-13] MEDS ORDERED: *HR* Dextrose 50 % in Water (Syg) 50 ML SYRINGE IVP PRN (05:28)
[2017-01-13 06:56] LABS: Basophils # 0.1 K/mcL (0.0-0.2); Basophils % 0.4 %; Eosinophils # 0.4 K/mcL (0.0-0.6); Eosinophils % 3.3 %; Hematocrit 33.6 % (37.5-50.1); Hemoglobin 10.7 g/dL (12.9-16.9); Immature Granulocytes % 1.3 % (0-4); Lymphocytes # 1.4 K/mcL (0.6-4.6); Lymphocytes % 11.9 %; Mean Corpuscular HGB Conc 31.8 g/dL (31.6-35.5); Mean Corpuscular Hemoglobin 27.8 pg (28.0-33.3); Mean Corpuscular Volume 87.3 fL (83.0-100.0); Mean Platelet Volume 10.4 fL (9.4-12.4); Monocytes # 0.7 K/mcL (0.0-1.3); Monocytes % 6.1 %; Platelet Count 416 K/mcL (140-400); Red Blood Count 3.85 M/mcL (4.19-5.50); Red Cell Distribution Width 13.3 % (11.5-14.5)
[2017-01-13 07:10] LABS: BUN/Creatinine Ratio 17 (6-26); Blood Urea Nitrogen 11 mg/dL (8-26); Calcium 8.6 mg/dL (8.6-10.8); Carbon Dioxide 28 mEq/L (19-29); Chloride 103 mEq/L (98-109); Glucose 99 mg/dL (70-99); Osmolality,Calculated 283 (280-300); Potassium 3.7 mEq/L (3.5-4.5); Sodium 137 mEq/L (136-145); eGFR For African Americans > 60 (> 60); eGFR For Non-African Americans > 60 (> 60)
--- NOTE | 2017-01-13 08:37 | Cardiothoracic Progress Note ---
Date of Encounter: 01/13/17 Time of Encounter: 08:35 - Assessment and plan (1) Mediastinal mass Current Visit: Yes Status: Acute Hopefully, the chest tubes can come out in 1-2 days. We will remove the Hallman at that time. - Subjective Interval history: The patient requests that we leave the Hallman until the chest tubes are removed. He is tolerating his diet. Vital Signs, Last 4 Hours Temp Pulse Resp BP Pulse Ox 01/13/17 07:00 98.1 F 87 17 128/65 97 01/13/17 06:26 95 17 134/60 95 Oxgyen Flow Rate Oxygen Flow Rate (LPM) 4 Clinical Data, last 8 Hours Output, Chest Tube Drainage 10 Amount [Right Lateral Chest #2 ] Output, Chest Tube Drainage 4 Amount [Left Lateral Chest #1] Weight 01/11/17 01/12/17 01/13/17 23:59 23:59 23:59 Weight 122 kg 126 kg Lungs are clear to percussion and auscultation. Heart is in a normal sinus rhythm. His incision is healing well without signs of infection. Chest tube drainage is minimal and there is no air leak. Chest x-ray reveals no pneumothorax. - Labs 01/13/17 06:40 01/13/17 06:40 Lab Results, Last 24 hours 01/13/17 01/13/17 06:40 06:40 WBC 11.7 H Hgb 10.7 L Hct 33.6 L Plt Count 416 H Sodium 137 Potassium 3.7 Chloride 103 Carbon Dioxide 28 BUN 11 Creatinine 0.64 L Glucose 99 Calcium 8.6 - VTE Documentation of Mechanical Device: Intermittent pneumatic compression device Consult Discharge Plan - Plan Referrals: Jasmina Tellez CNP [Advanced Practice Nurse] - 01/15/17 1:15 pm
--- NOTE | 2017-01-13 08:40 | Internal Med Progress Note ---
Date of Encounter: 01/13/17 Time of Encounter: 08:36 - Assessment and plan (1) Pneumonia Current Visit: Yes Status: Acute Qualifiers: Qualified Code(s): J18.9 - Pneumonia, unspecified organism (2) SIRS (systemic inflammatory response syndrome) Current Visit: Yes Status: Acute Assessment and plan: Patient presents with several SIRS criteria (tachycardia, leukocytosis, and fever). He might have an infection in his lung, making his current problem Sepsis, but it is unconfirmed at the moment and the findings on CT could represent the changes seen. He received 1 liter of fluids at presentation and is being continued on IVF with 100 mls/hr NS currently Continuing IV Zosyn Continued tachycardia and leukocytosis today, though leukocytosis is improving somewhat (3) Mediastinal mass Current Visit: Yes Status: Acute Assessment and plan: Recent CTA chest shows a posterior mediastinal mass in the sub-carinal region measuring 3.8x4.6 with bilateral hilar adenopathy. This finding is concerning as it could possibly represent a neoplastic process. His pleuritic chest pain could be related to his underlying lung pathology. His subjective fevers, anoerexia, diaphoresis, and fatigue are concerning for possible neoplastic process as well. Pulmonolgy performed bronchocscopy yesterday afternoon, unfortunately adequate tissue could not be obtained Cardiothoracic surgery has seen the patient to assist in biopsy of patient mass Oncology has also been consulted to help asses the malignancy concern Continue also Zosyn and at iatroconazole Continue albuerol Continue IVF with 100 mls/hr NS Oxycodone/Acetaminophen and morphine for mild pain (4) Chest pain Current Visit: Yes Status: Acute Assessment and plan: Pleuritic chest pain likely related to cough and mediastinal mass 5/325 Oxycodone/acetaminophen 2 mg IV morphine Q4hr prn Qualifiers: Chest pain type: unspecified Qualified Code(s): R07.9 - Chest pain, unspecified (5) DVT prophylaxis Current Visit: Yes Status: Acute Assessment and plan: 5000 U heparin SQ TID and SCDs (6) Pleural effusion Current Visit: Yes Status: Acute Assessment and plan: Small pleural effusion noted on CT Chest. Plan as above - Subjective Interval history: Mr. Last Renteria is a 26-year-old male who is a new patient for me though he has been in hospital for last 2 days. Apparently he presented with the chest pain and shortness of breath. He was noted to have for bilateral pulmonary infiltrates/atelectasis as well as effusion and significant mediastinal mass probably around 3.84.[address] chest, bronchoscopy and mediastinal scope by Dr. woodard and pulmonology. Frozen section raise the possibility of perivascular inflammatory mass rather than malignancy though final report is pending. Infectious diseases on the case and patient has been placed on IV Zosyn and IV iatroconazole. He has been transferred to our floor. He has 2 chest tubes which are draining It is suspected that he also has some asthma/emphysema as he came in wheezing. - Constitutional Vitals: Temp Pulse Resp BP Pulse Ox 98.1 F 87 17 128/65 97 01/13/17 07:00 01/13/17 07:00 01/13/17 07:00 01/13/17 07:00 01/13/17 07:00 - Head Head exam: Present: atraumatic, normocephalic - Eye Eye exam: Present: PERRL, conjuntiva pink, sclera anicteric Pupils: Present: PERRL - Neck Neck exam general surgery: Present: supple, trachea midline. Absent: lymphadenopathy - Respiratory Respiratory exam: Present: CTAB. Absent: accessory muscle use, rales, rhonchi, wheezes - Cardiovascular Cardiovascular exam: Present: RRR, +S1, +S2. Absent: diastolic murmur, gallop, rubs, systolic murmur - GI/Abdominal GI/Abdominal exam: Present: normal bowel sounds, soft, no peritoneal signs. Absent: distended, tenderness - Extremities Exam Extremities exam: Present: warm, radial pulses palpable and symetrical. Absent : calf tenderness, cyanotic, pedal edema - Neurological Exam Neurological exam: Present: CN II-XII intact, oriented X3, no focal deficits. Absent: pronater drift, facial droop, speech deficit - Skin Skin exam: Present: dry, intact Internal Medicine: Result - Labs CBC & Chem 7: 01/13/17 06:40 01/13/17 06:40 Labs: Short CBC 01/13/17 Range/Units 06:40 WBC 11.7 H (4.3-11.1) K/mcL Hgb 10.7 L (12.9-16.9) g/dL Hct 33.6 L (37.5-50.1) % Plt Count 416 H (140-400) K/mcL Neutrophils # 9.0 H (1.6-8.9) K/mcL BMP 01/13/17 06:40 Sodium 137 Potassium 3.7 Chloride 103 Carbon Dioxide 28 BUN 11 Creatinine 0.64 L Glucose 99 Calcium 8.6 - ABG Interpretation ABG results: ABG ABG pH 7.33 pH Units (7.32-7.45) 01/11/17 12:18 ABG pCO2 49 mmHg (35-45) H 01/11/17 12:18 ABG pO2 111 mmHg (85-104) H 01/11/17 12:18 ABG O2 Saturation 98 % (95-98) 01/11/17 12:18 PT/INR, D-dimer PT 17.1 Seconds (9.4-12.1) H 01/08/17 04:05 - Impressions Impressions Chest X-Ray 01/13/17 00:01 IMPRESSION: 1. Persistent bibasilar lung infiltrates, likely related to pleural effusions with associated atelectasis. 2. No pneumothorax. D/ / 01/13/2017 08:24:33 Laurent Tomas MD / bcarter Interpreting Provider: Laurent Tomas MD - VTE Documentation of Mechanical Device: Intermittent pneumatic compression device Consult Discharge Plan - Plan Referrals: Jasmina Tellez CNP [Advanced Practice Nurse] - 01/15/17 1:15 pm
[2017-01-13] MEDS: Insulin LISPRO 300 UNITS/3 ML VIAL SQ SCH ×3 (09:35→16:22)
[2017-01-13] MEDS: 0.9 % Sodium Chloride w KCl 20 MEQ/1,000 ML MLS IVC SCH ×2 (10:00→12:32)
[2017-01-13] MEDS: Piperacillin/Tazobactam 3.375 GM in D5% in Water (Mini-Bag+) 100 ML IVPB SCH ×2 (12:30→18:18)
[2017-01-13] MEDS ORDERED: Insulin LISPRO 300 UNITS/3 ML VIAL SQ SCH (21:00)
[2017-01-14] MEDS: *HR* OxyCODONE/APAP 5/325 TABLET PO PRN ×5 (01:48→23:17)
[2017-01-14] MEDS: Piperacillin/Tazobactam 3.375 GM in D5% in Water (Mini-Bag+) 100 ML IVPB SCH ×3 (04:55→19:55)
[2017-01-14] MEDS: *HR* Heparin 5,000 UNIT/ML VIAL SQ SCH ×3 (04:55→20:15)
--- NOTE | 2017-01-14 08:01 | Internal Med Progress Note ---
Date of Encounter: 01/14/17 Time of Encounter: 07:58 - Assessment and plan (1) Pneumonia Current Visit: Yes Status: Acute Qualifiers: Qualified Code(s): J15.1 - Pneumonia due to Pseudomonas (2) SIRS (systemic inflammatory response syndrome) Current Visit: Yes Status: Resolved (3) Mediastinal mass Current Visit: Yes Status: Acute (4) Chest pain Current Visit: Yes Status: Acute Qualifiers: Chest pain type: unspecified Qualified Code(s): R07.9 - Chest pain, unspecified (5) DVT prophylaxis Current Visit: Yes Status: Acute (6) Pleural effusion Current Visit: Yes Status: Acute - Subjective Interval history: Mr. Last Renteria is a 26-year-old male who is a new patient for me though he has been in hospital for last 2 days. Apparently he presented with the chest pain and shortness of breath. He was noted to have for bilateral pulmonary infiltrates/atelectasis as well as effusion and significant mediastinal mass probably around 3.84.[address] chest, bronchoscopy and mediastinal scope by Dr. woodard and pulmonology. Frozen section raise the possibility of perivascular inflammatory mass rather than malignancy though final report is pending. Infectious diseases on the case and patient has been placed on IV Zosyn and IV iatroconazole. He has been transferred to our floor. He has 2 chest tubes which are draining It is suspected that he also has some asthma/emphysema as he came in wheezing. 01/14 requesting more pain medication as he has chest tubes and? But otherwise seems quite stable. Blood pressure is on higher side therefore I will add lisinopril 5 mg considering the fact that he is also diabetic. Cardiothoracic surgery is following the chest tubes and this morning chest x-ray does not show any pneumothorax and pleural effusion has largely resolved. Biopsy of mediastinal mass is pending. - Constitutional Vitals: Temp Pulse Resp BP Pulse Ox 98.6 F 85 16 141/96 95 01/14/17 07:41 01/14/17 07:41 01/14/17 07:41 01/14/17 07:41 01/14/17 07:41 - Head Head exam: Present: atraumatic, normocephalic - Eye Eye exam: Present: PERRL, conjuntiva pink, sclera anicteric Pupils: Present: PERRL - Neck Neck exam general surgery: Present: supple, trachea midline. Absent: lymphadenopathy - Respiratory Respiratory exam: Present: decreased breath sounds, rhonchi, wheezes. Absent: accessory muscle use, rales Additional comments: Bilateral chest tube and bilateral symmetrical chest movement which sounds very clear. - Cardiovascular Cardiovascular exam: Present: RRR, +S1, +S2. Absent: diastolic murmur, gallop, rubs, systolic murmur - GI/Abdominal GI/Abdominal exam: Present: normal bowel sounds, soft, no peritoneal signs. Absent: distended, tenderness - Extremities Exam Extremities exam: Present: warm, radial pulses palpable and symetrical. Absent : calf tenderness, cyanotic, pedal edema - Neurological Exam Neurological exam: Present: CN II-XII intact, oriented X3, no focal deficits. Absent: pronater drift, facial droop, speech deficit - Skin Skin exam: Present: dry, intact Internal Medicine: Result - Labs CBC & Chem 7: 01/13/17 06:40 01/13/17 06:40 - ABG Interpretation ABG results: ABG ABG pH 7.33 pH Units (7.32-7.45) 01/11/17 12:18 ABG pCO2 49 mmHg (35-45) H 01/11/17 12:18 ABG pO2 111 mmHg (85-104) H 01/11/17 12:18 ABG O2 Saturation 98 % (95-98) 01/11/17 12:18 PT/INR, D-dimer PT 17.1 Seconds (9.4-12.1) H 01/08/17 04:05 - Impressions Impressions Chest X-Ray 01/13/17 00:01 IMPRESSION: 1. Persistent bibasilar lung infiltrates, likely related to pleural effusions with associated atelectasis. 2. No pneumothorax. D/ / 01/13/2017 08:24:33 Laurent Tomas MD / [email or web address] Interpreting Provider: Laurent Tomas MD Chest X-Ray 01/14/17 00:01 IMPRESSION: No significant change in the appearance of the chest. D/ / Blaze Mayberry MD / Blaze Mayberry MD Interpreting Provider: Blaze Mayberry MD - VTE Documentation of Mechanical Device: Intermittent pneumatic compression device Consult Discharge Plan - Plan Referrals: NO,PCP [Primary Care Provider] -
--- NOTE | 2017-01-14 08:25 | Cardiothoracic Progress Note ---
Date of Encounter: 01/14/17 Time of Encounter: 08:23 - Assessment and plan (1) Mediastinal mass Current Visit: Yes Status: Acute The patient is recovering well from his right thoracotomy with mediastinal lymph node biopsy. The pathology is pending. The patient's chest tubes were placed to waterseal. The assessment and plan as outlined above was discussed with the patient and/or family members who expressed understanding and agreement. All questions were answered. - Subjective Procedure(s) Performed: POD#3 S/P Right thoracotomy with mediastinal node biopsy Interval history: The patient is resting comfortably in his hospital bed. He has no respiratory complaints. Vital Signs, Last 4 Hours Temp Pulse Resp BP Pulse Ox 01/14/17 07:41 98.6 F 85 16 141/96 95 01/14/17 04:55 76 16 154/70 96 Oxgyen Flow Rate Oxygen Flow Rate (LPM) 4 Weight 01/12/17 01/13/17 01/14/17 23:59 23:59 23:59 Weight 126 kg - Physical Examination General: Conversant, No Apparent Distress Neck: No JVD, Normal carotid pulses Cardiac: Reg Rate and Rhythm, Normal S1 and S2, No Murmur Incision: No signs of infection, Dry/intact dressing Chest tubes: Minimal drainage, Other (No air leak) Lungs: Normal Breath Sounds, No Wheeze, Rales, Rhonchi Neuro: Alert and responsive, No focal deficits noted Vascular: Normal capillary refill Extremities: No Clubbing, No Cyanosis, No Edema, Normal Pulses - Labs 01/13/17 06:40 01/13/17 06:40 - Imaging Chest Xray: image reviewed (No pneumothorax. Small right pleural effusion. Bibasilar atelectasis.) - VTE Documentation of Mechanical Device: Intermittent pneumatic compression device Consult Discharge Plan - Plan Referrals: Jasmina Tellez CNP [Advanced Practice Nurse] - 01/15/17 1:15 pm
[2017-01-14] MEDS: Insulin LISPRO 300 UNITS/3 ML VIAL SQ SCH (09:09)
--- NOTE | 2017-01-14 10:52 | Infectious Disease Progress No ---
Date of Encounter: 01/14/17 Time of Encounter: 10:50 - Assessment and Plan (1) SIRS (systemic inflammatory response syndrome) Current Visit: Yes Status: Resolved The patient had three SIRS criteria (fever, tachycardia, and leukocytosis). Etiology unclear: infectious vs. mediastinal mass. Improved. The patient had a fever of 100.0 on 01/12, but has been afebrile since then. Additionally, the patient's WBC has been trending down and was near- normal yesterday. Tachycardia has resolved. Blood cultures drawn 01/07/17 are negative x 2 sets. (2) Mediastinal mass Current Visit: Yes Status: Acute Location: Subcarinal. Etiology unclear. Status post attempted EBUS that was unsuccessful. Status post thoracotomy and biopsy of the lesion and several lymph nodes by Dr. Brown. Frozen sections not obvious for malignancy. Pathology pending. Pleural fluid encountered intra-op was turbid and brown. Aerobic and anaerobic cultures are negative. AFB culture negative as well. Await fungal cultures and GMS stain --> pending. Fungitell positive. Histoplasma Ab pending. Continue Zosyn 3.375 grams IV Q8H. Continue itraconazole 200mg PO daily. Check itraconazole before dose in the AM. Monitor renal and liver function closely and dose-adjust antibiotics/ antifungals. Repeat LFTs in the AM. Duration of treatment depends on the clinical picture. (3) Mediastinal adenopathy Current Visit: Yes Status: Acute Status post biopsy. Pathology pending. (4) Respiratory failure Current Visit: Yes Status: Resolved Secondary to surgery. Extubated 01/11/17. Resolved. Qualifiers: Chronicity: acute Respiratory failure complication: unspecified whether with hypoxia or hypercapnia Qualified Code(s): J96.00 - Acute respiratory failure, unspecified whether with hypoxia or hypercapnia (5) Pleural effusion Current Visit: Yes Status: Acute CXR completed 01/14/17 shows a small right sided and trace left sided pleural effusion. Continue to follow with serial CXRs. (6) Elevated erythrocyte sedimentation rate Current Visit: Yes Status: Acute - Subjective Interval history: Patient seen and examined. Weekend notes reviewed. No acute events noted. Patient resting quietly in bed. Complains of right lateral chest and upper back pain. Denies fevers or chills. Denies chest pain or shortness of breath. Reports a cough productive of light brown sputum. Denies nausea, vomiting, or diarrhea. States he is not sure when his last BM was. Has hutchison catheter that is patent. States he does not have much of an appetite. Denies oral thrush or new skin lesions. Infect Dis PN-Objective Data - Labs CBC & Chem 7: 01/13/17 06:40 01/13/17 06:40 Labs: Laboratory Results - last 24 hr 01/12/17 01/12/17 01/13/17 05:10 06:41 12:28 POC Glucose 82 U Histopl Galactoman Ag NOT DETECTED U Histopl Galact Ant Int NOT DETECTED Beta-(1,3)-D-Glucan 151 B-(1,3)-D-Glucan Intrp POSITIVE A 01/13/17 01/13/17 01/14/17 15:10 21:26 07:47 POC Glucose 100 H 94 H 80 U Histopl Galactoman Ag U Histopl Galact Ant Int Beta-(1,3)-D-Glucan B-(1,3)-D-Glucan Intrp Cultures: Cultures 01/11/17 08:38 Anaerobic Culture - Preliminary Pleural Fluid At this time, no anaerobic growth is present. The culture will be finalized after 5 days of incubation. 01/11/17 08:38 Body Fluid Culture - Final Pleural Fluid 01/11/17 08:38 Acid Fast Stain - Final Pleural Fluid Serology 01/12/17 01/12/17 Range/Units 06:41 05:10 U Histopl Galactoman Ag NOT DETECTED ng/mL U Histopl Galact Ant Int NOT DETECTED (Not Detected) Beta-(1,3)-D-Glucan 151 pg/mL B-(1,3)-D-Glucan Intrp POSITIVE A (Negative) - Impressions Impressions Chest X-Ray 01/13/17 00:01 IMPRESSION: 1. Persistent bibasilar lung infiltrates, likely related to pleural effusions with associated atelectasis. 2. No pneumothorax. D/ / 01/13/2017 08:24:33 Laurent Tomas MD / [email or web address] Interpreting Provider: Laurent Tomas MD Chest X-Ray 01/14/17 00:01 IMPRESSION: No significant change in the appearance of the chest. D/ / Blaze Mayberry MD / Blaze Mayberry MD Interpreting Provider: Blaze Mayberry MD Exam - Constitutional Vitals: Temp Pulse Resp BP Pulse Ox 98.6 F 85 16 141/96 95 01/14/17 07:41 01/14/17 07:41 01/14/17 07:41 01/14/17 07:41 01/14/17 07:41 General appearance: cooperative, no acute distress, obese - Head Head exam: Present: atraumatic, normal inspection, normocephalic - Eye Eye exam: Present: EOMI, normal appearance, PERRL Pupils: Present: normal accommodation - ENT ENT exam: Present: mucous membranes moist - Neck Neck exam: Present: normal inspection - Respiratory Respiratory exam: Present: CTAB. Absent: rales, respiratory distress, rhonchi, wheezes Additional comments: Chest tubes x 2 noted to the lateral chest wall with dressing C/D/I. No air leak or crepitus noted. Drainage appears serosanguinous. Surgical site noted to the right posterolateral chest wall with dressing C/D/I. No drainage, warmth, or erythema noted. Mild tenderness noted with palpation of the surgical and chest tube sites. - Cardiovascular Cardiovascular exam: Present: RRR, +S1, +S2 - GI/Abdominal GI/Abdominal exam: Present: normal bowel sounds, soft. Absent: distended, tenderness Additional comments: Hutchison catheter noted to be draining clear yellow urine. - Extremities Exam Extremities exam: Present: normal inspection. Absent: joint swelling, pedal edema, tenderness - Neurological Exam Neurological exam: Present: alert, oriented X3, no focal deficits - Psychiatric Psychiatric exam: Present: normal affect, normal mood - Skin Skin exam: Present: dry, intact, normal color, warm - VTE Documentation of Mechanical Device: Intermittent pneumatic compression device Consult Discharge Plan - Plan Referrals: NO,PCP [Primary Care Provider] - - Attending Attestation I examined this patient and my medical decision-making was reviewed with the BENZENE STILL UTILITY OPERATOR/PA/Advanced Practice Nurse/Resident Physician. I agree with the documented findings, disposition and treatment plan as described except to the extent set forth below.
[2017-01-14] MEDS: 0.9 % Sodium Chloride 1,000 ML IVC SCH (15:15)
[2017-01-14] MEDS: Vancomycin 1,750 MG in D5% in Water 500 ML IVPB SCH (20:30)
[2017-01-15] MEDS: *HR* Heparin 5,000 UNIT/ML VIAL SQ SCH ×3 (04:38→21:13)
[2017-01-15] MEDS: *HR* OxyCODONE/APAP 5/325 TABLET PO PRN (04:38)
[2017-01-15] MEDS: Piperacillin/Tazobactam 3.375 GM in D5% in Water (Mini-Bag+) 100 ML IVPB SCH ×2 (04:39→12:40)
[2017-01-15] MEDS: 0.9 % Sodium Chloride 1,000 ML IVC SCH (04:39)
[2017-01-15 05:16] LABS: Albumin 2.1 g/dL (3.5-5.0); Albumin/Globulin Ratio 0.5 (1.1-2.2); Bilirubin,Direct 0.2 mg/dL (0.0-0.5); Bilirubin,Indirect 0.1 mg/dL (0.0-1.2); Bilirubin,Total 0.3 mg/dL (0.2-1.2); Globulin 4.3 g/dL (2.4-3.5); Total Protein 6.4 g/dL (6.0-8.3)
--- NOTE | 2017-01-15 07:55 | Cardiothoracic Progress Note ---
Date of Encounter: 01/15/17 Time of Encounter: 07:54 - Assessment and plan (1) Mediastinal mass Current Visit: Yes Status: Acute The patient is recovering well from his right thoracotomy with mediastinal lymph node biopsy. The chest tubes were removed. The pathology is pending. The assessment and plan as outlined above was discussed with the patient and/or family members who expressed understanding and agreement. All questions were answered. - Subjective Procedure(s) Performed: POD#4 S/P Right thoracotomy with mediastinal node biopsy Interval history: The patient is resting comfortably in his hospital bed. He has no respiratory complaints. Vital Signs, Last 4 Hours Temp Pulse Resp BP Pulse Ox 01/15/17 06:31 98.2 F 75 16 131/72 96 01/15/17 04:29 98.0 F 83 16 131/61 94 Oxgyen Flow Rate Oxygen Flow Rate (LPM) 4 Weight 01/13/17 01/14/17 01/15/17 23:59 23:59 23:59 Weight 127 kg - Physical Examination General: Conversant, No Apparent Distress Neck: No JVD, Normal carotid pulses Cardiac: Reg Rate and Rhythm, Normal S1 and S2, No Murmur Incision: No signs of infection, Dry/intact dressing Chest tubes: Minimal drainage, Other (No air leak.) Lungs: Normal Breath Sounds, No Wheeze, Rales, Rhonchi Neuro: Alert and responsive, No focal deficits noted Vascular: Normal capillary refill Extremities: No Clubbing, No Cyanosis, No Edema, Normal Pulses - Labs 01/13/17 06:40 01/13/17 06:40 Lab Results, Last 24 hours 01/15/17 03:49 Total Bilirubin 0.3 AST 23 ALT 17 Alkaline Phosphatase 95 - Imaging Chest Xray: image reviewed (No pneumothorax. Right pleural effusion, unchanged.) - VTE Documentation of Mechanical Device: Intermittent pneumatic compression device Consult Discharge Plan - Plan Referrals: NO,PCP [Primary Care Provider] -
[2017-01-15] MEDS: Vancomycin 1,750 MG in D5% in Water 500 ML IVPB SCH (08:46)
[2017-01-15] MEDS ORDERED: *HR* HYDROmorphone (PF) 1 MG/ML SYRINGE IVP PRN (09:00)
[2017-01-15] MEDS ORDERED: *HR* OxyCODONE/APAP 7.5/325 TABLET PO PRN (09:00)
--- NOTE | 2017-01-15 09:03 | Internal Med Progress Note ---
<Chris Christopher - Last Filed: 01/15/17 09:01> Date of Encounter: 01/15/17 Time of Encounter: 09:02 - Assessment and plan (1) Mediastinal mass Current Visit: Yes Status: Acute Assessment and plan: Postop day 4 status post thoracotomy with removal of mediastinal mass. Pathology at this point been negative for malignancy and there is concern for an infectious process with possible fungal infection. Fungitell is positive, fungal cultures pending. Patient is currently on itraconazole. Infectious disease is following and we appreciate their recommendations. Chest tubes removed today by cardiothoracic surgery. We will discontinue TOP LIFT COMPRESSOR pump and transition to by mouth pain medication with IV Dilaudid for breakthrough pain. (2) Pleural effusion Current Visit: Yes Status: Acute Assessment and plan: Possibly infectious. Fluid cultures obtained intraoperatively are pending. (3) DVT prophylaxis Current Visit: Yes Status: Acute Assessment and plan: Heparin 5000 units subcutaneous twice a day - Subjective Interval history: Patient seen and examined bedside. Patient reports pain at the sites of his chest tubes that have been removed. Otherwise the patient states that he feels pretty good. He denies any chest pain, shortness of breath, fever, chills. - Constitutional Vitals: Temp Pulse Resp BP Pulse Ox 98.2 F 75 16 131/72 96 01/15/17 06:31 01/15/17 06:31 01/15/17 06:31 01/15/17 06:31 01/15/17 06:31 General appearance: Present: A&O X 3, pleasant, no acute distress - Respiratory Respiratory exam: Present: CTAB. Absent: rales, rhonchi, wheezes - Cardiovascular Cardiovascular exam: Present: RRR. Absent: gallop, rubs, systolic murmur - GI/Abdominal GI/Abdominal exam: Present: normal bowel sounds, soft. Absent: distended, tenderness - Extremities Exam Extremities exam: Present: warm. Absent: pedal edema, tenderness - Neurological Exam Neurological exam: Present: alert, CN II-XII intact, oriented X3, no focal deficits Internal Medicine: Result - Labs CBC & Chem 7: 01/13/17 06:40 01/13/17 06:40 Labs: Liver Function 01/15/17 Range/Units 03:49 Total Bilirubin 0.3 (0.2-1.2) mg/dL Direct Bilirubin 0.2 (0.0-0.5) mg/dL AST 23 (5-34) Units/L ALT 17 (0-55) Units/L Alkaline Phosphatase 95 (38-126) Units/L Albumin 2.1 L (3.5-5.0) g/dL - ABG Interpretation ABG results: ABG ABG pH 7.33 pH Units (7.32-7.45) 01/11/17 12:18 ABG pCO2 49 mmHg (35-45) H 01/11/17 12:18 ABG pO2 111 mmHg (85-104) H 01/11/17 12:18 ABG O2 Saturation 98 % (95-98) 01/11/17 12:18 PT/INR, D-dimer PT 17.1 Seconds (9.4-12.1) H 01/08/17 04:05 - Impressions Impressions Chest X-Ray 01/15/17 06:00 IMPRESSION: 1. Stable chest. D/ / Laurent Tomas MD / Laurent Tomas MD Interpreting Provider: Laurent Tomas MD - VTE Documentation of Mechanical Device: Intermittent pneumatic compression device Consult Discharge Plan - Plan Referrals: NO,PCP [Primary Care Provider] - <Vimal Collier P - Last Filed: 01/15/17 12:23> Date of Encounter: 01/15/17 - Constitutional Vitals: Temp Pulse Resp BP Pulse Ox 97.6 F 90 16 149/75 97 01/15/17 11:24 01/15/17 11:24 01/15/17 11:24 01/15/17 11:24 01/15/17 11:24 Internal Medicine: Result - Labs CBC & Chem 7: 01/15/17 09:09 01/15/17 09:09 Labs: Short CBC 01/15/17 Range/Units 09:09 WBC 10.7 (4.3-11.1) K/mcL Hgb 11.8 L (12.9-16.9) g/dL Hct 36.8 L (37.5-50.1) % Plt Count 497 H (140-400) K/mcL Neutrophils # 8.2 (1.6-8.9) K/mcL BMP 01/15/17 09:09 Sodium 136 Potassium 3.7 Chloride 101 Carbon Dioxide 28 BUN 7 L Creatinine 0.64 L Glucose 118 H Calcium 9.2 Liver Function 01/15/17 Range/Units 03:49 Total Bilirubin 0.3 (0.2-1.2) mg/dL Direct Bilirubin 0.2 (0.0-0.5) mg/dL AST 23 (5-34) Units/L ALT 17 (0-55) Units/L Alkaline Phosphatase 95 (38-126) Units/L Albumin 2.1 L (3.5-5.0) g/dL - ABG Interpretation ABG results: ABG ABG pH 7.33 pH Units (7.32-7.45) 01/11/17 12:18 ABG pCO2 49 mmHg (35-45) H 01/11/17 12:18 ABG pO2 111 mmHg (85-104) H 01/11/17 12:18 ABG O2 Saturation 98 % (95-98) 01/11/17 12:18 PT/INR, D-dimer PT 17.1 Seconds (9.4-12.1) H 01/08/17 04:05 - Impressions Impressions Chest X-Ray 01/15/17 06:00 IMPRESSION: 1. Stable chest. D/ / Laurent Tomas MD / Laurent Tomas MD Interpreting Provider: Laurent Tomas MD - Attending Attestation I examined this patient and my medical decision-making was reviewed with the FITNESS AND WELLNESS COORDINATOR/PA/Advanced Practice Nurse/Resident Physician. I agree with the documented findings, disposition and treatment plan as described except to the extent set forth below. awaiting for pathology report.
[2017-01-15 09:19] LABS: Hematocrit 36.8 % (37.5-50.1); Hemoglobin 11.8 g/dL (12.9-16.9); Immature Granulocytes % 2.9 % (0-4); Lymphocytes % 12.8 %; Mean Corpuscular HGB Conc 32.1 g/dL (31.6-35.5); Mean Corpuscular Hemoglobin 27.7 pg (28.0-33.3); Mean Corpuscular Volume 86.4 fL (83.0-100.0); Mean Platelet Volume 10.1 fL (9.4-12.4); Platelet Count 497 K/mcL (140-400); Red Blood Count 4.26 M/mcL (4.19-5.50); Red Cell Distribution Width 13.2 % (11.5-14.5); Segmented Neutrophils % 76.4 %
[2017-01-15 09:20] LABS: Basophils # 0.1 K/mcL (0.0-0.2); Basophils % 0.6 %; Eosinophils # 0.3 K/mcL (0.0-0.6); Eosinophils % 2.9 %; Lymphocytes # 1.4 K/mcL (0.6-4.6); Monocytes # 0.5 K/mcL (0.0-1.3); Monocytes % 4.4 %; Neutrophils # 8.2 K/mcL (1.6-8.9)
[2017-01-15 09:31] LABS: BUN/Creatinine Ratio 11 (6-26); Blood Urea Nitrogen 7 mg/dL (8-26); Calcium 9.2 mg/dL (8.6-10.8); Carbon Dioxide 28 mEq/L (19-29); Chloride 101 mEq/L (98-109); Glucose 118 mg/dL (70-99); Osmolality,Calculated 281 (280-300); Potassium 3.7 mEq/L (3.5-4.5); Sodium 136 mEq/L (136-145); eGFR For African Americans > 60 (> 60); eGFR For Non-African Americans > 60 (> 60)
[2017-01-15] MEDS ORDERED: Aminoglycoside Consult 1 EACH MC ONE (09:55)
[2017-01-15] MEDS ORDERED: Sennosides/Docusate Sodium TABLET PO PRN (11:09)
[2017-01-15] MEDS ORDERED: *HR* HYDROmorphone 20 MG/20 ML PCA IVC PRN (12:38)
--- NOTE | 2017-01-15 14:54 | Infectious Disease Progress No ---
Date of Encounter: 01/15/17 Time of Encounter: 10:00 - Assessment and Plan (1) SIRS (systemic inflammatory response syndrome) Current Visit: Yes Status: Resolved The patient had three SIRS criteria (fever, tachycardia, and leukocytosis). Etiology unclear: infectious vs. mediastinal mass. Improved. The patient had a fever of 100.0 on 01/12, but has been afebrile since then. Additionally, the patient's WBC has been trending down. Repeat CBC in the AM. Tachycardia has resolved. Blood cultures drawn 01/07/17 are negative x 2 sets. (2) Mediastinal mass Current Visit: Yes Status: Acute Location: Subcarinal. Etiology unclear. Status post attempted EBUS that was unsuccessful. Status post thoracotomy and biopsy of the lesion and several lymph nodes by Dr. Brown. Frozen sections not obvious for malignancy. Pathology pending. Pleural fluid encountered intra-op was turbid and brown. Aerobic and anaerobic cultures are negative. AFB culture negative as well. Await fungal cultures and GMS stain --> pending. Spoke with pathology this afternoon and states that the GMS stain is still pending. Fungitell positive. Histoplasma Ab negative. Discontinue Zosyn. Continue itraconazole 200mg PO daily for now. Itraconazole level pending. If GMS stain negative, will consider stopping itraconazole. Monitor renal and liver function closely and dose-adjust antibiotics/ antifungals. LFTs this morning are normal. Duration of treatment depends on the clinical picture. (3) Mediastinal adenopathy Current Visit: Yes Status: Acute Status post biopsy. Pathology pending. (4) Respiratory failure Current Visit: Yes Status: Resolved Secondary to surgery. Extubated 01/11/17. Resolved. Qualifiers: Chronicity: acute Respiratory failure complication: unspecified whether with hypoxia or hypercapnia Qualified Code(s): J96.00 - Acute respiratory failure, unspecified whether with hypoxia or hypercapnia (5) Pleural effusion Current Visit: Yes Status: Acute CXR completed 01/14/17 shows a small right sided and trace left sided pleural effusion. Continue to follow with serial CXRs. (6) Elevated erythrocyte sedimentation rate Current Visit: Yes Status: Acute (7) IV site infection Current Visit: Yes Status: Acute Location: Left AC. Per nursing notes, erythema, tenderness, and pus draining from site when it was removed. No evidence of cellulitis on exam today. Vancomycin started per the primary team. Discontinue Vanc. Start Bactrim DS 1 tab PO BID x 7 days. Monitor renal function and dose-adjust antibiotics. Qualifiers: Encounter type: initial encounter Qualified Code(s): T82.7XXA - Infection and inflammatory reaction due to other cardiac and vascular devices, implants and grafts, initial encounter - Subjective Interval history: Patient seen and examined. No acute events noted overnight. Chest tubes removed this morning. Patient sitting up in the bedside chair for the exam. Complains of right lateral chest pain, but states he feels better overall since being able to get out of bed. Denies fevers or chills. Denies chest pain or shortness of breath. Reports a cough productive of light brown sputum. Denies nausea, vomiting, or diarrhea. States he is not sure when his last BM was. Hallman catheter removed this morning, but patient has not voided since removal. States he does not have much of an appetite in the mornings, but reports good appetite for lunch and dinner. Denies oral thrush or new skin lesions. Infect Dis PN-Objective Data - Labs CBC & Chem 7: 01/15/17 09:09 01/15/17 09:09 Labs: Laboratory Results - last 24 hr 01/15/17 01/15/17 01/15/17 03:49 09:09 09:09 WBC 10.7 RBC 4.26 Hgb 11.8 L Hct 36.8 L MCV 86.4 MCH 27.7 L MCHC 32.1 RDW 13.2 Plt Count 497 H MPV 10.1 Immature Gran % 2.9 Seg Neutrophils % 76.4 Lymphocytes % 12.8 Monocytes % 4.4 Eosinophils % 2.9 Basophils % 0.6 Neutrophils # 8.2 Lymphocytes # 1.4 Monocytes # 0.5 Eosinophils # 0.3 Basophils # 0.1 Sodium 136 Potassium 3.7 Chloride 101 Carbon Dioxide 28 BUN 7 L Creatinine 0.64 L Est GFR ( Amer) > 60 Est GFR (Non-Af Amer) > 60 BUN/Creatinine Ratio 11 Glucose 118 H Calculated Osmolality 281 Calcium 9.2 Total Bilirubin 0.3 Direct Bilirubin 0.2 Indirect Bilirubin 0.1 AST 23 ALT 17 Alkaline Phosphatase 95 Serum Total Protein 6.4 Albumin 2.1 L Globulin 4.3 H Albumin/Globulin Ratio 0.5 L Cultures: Cultures 01/11/17 08:38 Anaerobic Culture - Preliminary Pleural Fluid At this time, no anaerobic growth is present. The culture will be finalized after 5 days of incubation. 01/11/17 08:38 Body Fluid Culture - Final Pleural Fluid 01/11/17 08:38 Acid Fast Stain - Final Pleural Fluid Serology 01/12/17 01/12/17 Range/Units 06:41 05:10 U Histopl Galactoman Ag NOT DETECTED ng/mL U Histopl Galact Ant Int NOT DETECTED (Not Detected) Beta-(1,3)-D-Glucan 151 pg/mL B-(1,3)-D-Glucan Intrp POSITIVE A (Negative) - Impressions Impressions Chest X-Ray 01/15/17 06:00 IMPRESSION: 1. Stable chest. D/ / Laurent Tomas MD / Laurent Tomas MD Interpreting Provider: Laurent Tomas MD Exam - Constitutional Vitals: Temp Pulse Resp BP Pulse Ox 97.6 F 90 16 149/75 97 01/15/17 11:24 01/15/17 11:24 01/15/17 11:24 01/15/17 11:24 01/15/17 11:24 General appearance: cooperative, no acute distress, obese - Head Head exam: Present: atraumatic, normal inspection, normocephalic - Eye Eye exam: Present: EOMI, normal appearance, PERRL Pupils: Present: normal accommodation - ENT ENT exam: Present: mucous membranes moist - Neck Neck exam: Present: normal inspection - Respiratory Respiratory exam: Present: CTAB. Absent: rales, respiratory distress, rhonchi, wheezes Additional comments: Right posterolateral chest wall surgical site dressing with small amount of old bloody drainage noted. No erythema or warmth noted. Right lateral chest tube sites with dressing C/D/I. No warmth, erythema, or crepitus noted. - Cardiovascular Cardiovascular exam: Present: RRR, +S1, +S2 - GI/Abdominal GI/Abdominal exam: Present: distended (obese), normal bowel sounds, soft. Absent: tenderness - Extremities Exam Extremities exam: Present: normal inspection. Absent: joint swelling, pedal edema, tenderness - Neurological Exam Neurological exam: Present: alert, oriented X3, no focal deficits - Psychiatric Psychiatric exam: Present: normal affect, normal mood - Skin Skin exam: Present: dry, intact, normal color, warm - VTE Documentation of Mechanical Device: Intermittent pneumatic compression device Consult Discharge Plan - Plan Referrals: NO,PCP [Primary Care Provider] - - Attending Attestation I examined this patient and my medical decision-making was reviewed with the PIPE STRAIGHTENER/PA/Advanced Practice Nurse/Resident Physician. I agree with the documented findings, disposition and treatment plan as described except to the extent set forth below.
[2017-01-15] MEDS: Sulfamethoxazole/Trimeth DS 1 EACH TABLET PO SCH (21:13)
[2017-01-16 06:20] LABS: Basophils # 0.1 K/mcL (0.0-0.2); Basophils % 0.9 %; Eosinophils # 0.4 K/mcL (0.0-0.6); Eosinophils % 3.5 %; Hematocrit 38.7 % (37.5-50.1); Hemoglobin 12.6 g/dL (12.9-16.9); Immature Granulocytes % 4.9 % (0-4); Lymphocytes # 1.9 K/mcL (0.6-4.6); Mean Corpuscular HGB Conc 32.6 g/dL (31.6-35.5); Mean Corpuscular Hemoglobin 27.8 pg (28.0-33.3); Mean Corpuscular Volume 85.2 fL (83.0-100.0); Mean Platelet Volume 11.5 fL (9.4-12.4); Monocytes # 0.7 K/mcL (0.0-1.3); Monocytes % 6.4 %; Neutrophils # 7.1 K/mcL (1.6-8.9); Nucleated Red Blood Cells 0.9 /100 WBC (0); Platelet Count 432 K/mcL (140-400); Red Blood Count 4.54 M/mcL (4.19-5.50); Red Cell Distribution Width 13.1 % (11.5-14.5); Segmented Neutrophils % 66.3 %
[2017-01-16] MEDS: *HR* Heparin 5,000 UNIT/ML VIAL SQ SCH ×3 (06:55→21:09)
[2017-01-16] MEDS: Sulfamethoxazole/Trimeth DS 1 EACH TABLET PO SCH ×2 (08:25→20:17)
[2017-01-16] MEDS ORDERED: *HR* HYDROmorphone (PF) 1 MG/ML SYRINGE IVP PRN (08:29)
--- NOTE | 2017-01-16 09:00 | Cardiothoracic Progress Note ---
Date of Encounter: 01/16/17 Time of Encounter: 08:58 - Assessment and plan (1) Mediastinal mass Current Visit: Yes Status: Acute The permanent pathology has been sent to an outside lab and will take a few weeks to come back. We will switch the patient to by mouth pain medication in a day or 2 and hopefully he can be discharged by this weekend. - Subjective Interval history: The patient complains of mild postoperative pain. Vital Signs, Last 4 Hours Temp Pulse Resp BP Pulse Ox 01/16/17 07:00 97.6 F 76 17 139/67 97 Oxgyen Flow Rate Oxygen Flow Rate (LPM) 4 Weight 01/14/17 01/15/17 01/16/17 23:59 23:59 23:59 Weight 127 kg 123.5 kg Lungs are clear to percussion and auscultation. Heart is in a normal sinus rhythm. His incision is healing well without signs of infection. - Labs 01/16/17 05:36 01/15/17 09:09 Lab Results, Last 24 hours 01/15/17 01/15/17 01/16/17 09:09 09:09 05:36 WBC 10.7 10.7 Hgb 11.8 L 12.6 L Hct 36.8 L 38.7 Plt Count 497 H 432 H Sodium 136 Potassium 3.7 Chloride 101 Carbon Dioxide 28 BUN 7 L Creatinine 0.64 L Glucose 118 H Calcium 9.2 - VTE Documentation of Mechanical Device: Intermittent pneumatic compression device Consult Discharge Plan - Plan Referrals: NO,PCP [Primary Care Provider] -
--- NOTE | 2017-01-16 09:01 | Internal Med Progress Note ---
<KyleChris acosta - Last Filed: 01/16/17 09:27> Date of Encounter: 01/16/17 Time of Encounter: 08:59 - Assessment and plan (1) Mediastinal mass Current Visit: Yes Status: Acute Assessment and plan: Postop day 5 status post thoracotomy with removal of mediastinal mass. Pathology at this point been negative for malignancy and there is concern for an infectious process with possible fungal infection. Fungitell is positive, fungal cultures pending. Patient is currently on itraconazole. Infectious disease is following and we appreciate their recommendations. Chest tubes removed yesterday by cardiothoracic surgery. PEDIATRIC ONCOLOGY NURSE pump was continued through yesterday but today we will discontinue PEDIATRIC ONCOLOGY NURSE pump and transition to by mouth pain medication with IV Dilaudid for breakthrough pain. (2) Pleural effusion Current Visit: Yes Status: Acute Assessment and plan: Possibly infectious. Fluid cultures obtained intraoperatively are pending. (3) DVT prophylaxis Current Visit: Yes Status: Acute Assessment and plan: Heparin 5000 units subcutaneous twice a day - Subjective Interval history: Patient seen and examined bedside. Patient reports pain at the sites of his chest tubes that have been removed. Otherwise the patient states that he feels pretty good. He reports mild shortness of breath when ambulating. He denies any chest pain, fever, chills. - Constitutional Vitals: Temp Pulse Resp BP Pulse Ox 97.6 F 76 17 139/67 97 01/16/17 07:00 01/16/17 07:00 01/16/17 07:00 01/16/17 07:00 01/16/17 07:00 General appearance: Present: A&O X 3, pleasant, no acute distress - Respiratory Respiratory exam: Present: CTAB. Absent: rales, rhonchi, wheezes - Cardiovascular Cardiovascular exam: Present: RRR. Absent: gallop, rubs, systolic murmur - GI/Abdominal GI/Abdominal exam: Present: normal bowel sounds, soft. Absent: distended, tenderness - Extremities Exam Extremities exam: Present: warm. Absent: pedal edema, tenderness - Neurological Exam Neurological exam: Present: alert, CN II-XII intact, oriented X3, no focal deficits Internal Medicine: Result - Labs CBC & Chem 7: 01/16/17 05:36 01/15/17 09:09 Labs: Short CBC 01/15/17 01/16/17 Range/Units 09:09 05:36 WBC 10.7 10.7 (4.3-11.1) K/mcL Hgb 11.8 L 12.6 L (12.9-16.9) g/dL Hct 36.8 L 38.7 (37.5-50.1) % Plt Count 497 H 432 H (140-400) K/mcL Neutrophils # 8.2 7.1 (1.6-8.9) K/mcL BMP 01/15/17 09:09 Sodium 136 Potassium 3.7 Chloride 101 Carbon Dioxide 28 BUN 7 L Creatinine 0.64 L Glucose 118 H Calcium 9.2 - ABG Interpretation ABG results: ABG ABG pH 7.33 pH Units (7.32-7.45) 01/11/17 12:18 ABG pCO2 49 mmHg (35-45) H 01/11/17 12:18 ABG pO2 111 mmHg (85-104) H 01/11/17 12:18 ABG O2 Saturation 98 % (95-98) 01/11/17 12:18 PT/INR, D-dimer PT 17.1 Seconds (9.4-12.1) H 01/08/17 04:05 - VTE Documentation of Mechanical Device: Intermittent pneumatic compression device Consult Discharge Plan - Plan Referrals: NO,PCP [Primary Care Provider] - <Vimal Collier P - Last Filed: 01/16/17 11:21> Date of Encounter: 01/16/17 - Constitutional Vitals: Temp Pulse Resp BP Pulse Ox 97.6 F 76 17 139/67 97 01/16/17 07:00 01/16/17 07:00 01/16/17 07:00 01/16/17 07:00 01/16/17 07:00 Internal Medicine: Result - Labs CBC & Chem 7: 01/16/17 05:36 01/15/17 09:09 Labs: Short CBC 01/16/17 Range/Units 05:36 WBC 10.7 (4.3-11.1) K/mcL Hgb 12.6 L (12.9-16.9) g/dL Hct 38.7 (37.5-50.1) % Plt Count 432 H (140-400) K/mcL Neutrophils # 7.1 (1.6-8.9) K/mcL - ABG Interpretation ABG results: ABG ABG pH 7.33 pH Units (7.32-7.45) 01/11/17 12:18 ABG pCO2 49 mmHg (35-45) H 01/11/17 12:18 ABG pO2 111 mmHg (85-104) H 01/11/17 12:18 ABG O2 Saturation 98 % (95-98) 01/11/17 12:18 PT/INR, D-dimer PT 17.1 Seconds (9.4-12.1) H 01/08/17 04:05 - Attending Attestation I examined this patient and my medical decision-making was reviewed with the [employer] TESTER/PA/Advanced Practice Nurse/Resident Physician. I agree with the documented findings, disposition and treatment plan as described except to the extent set forth below. will follow recommendations from ID/CTS surgery
--- NOTE | 2017-01-16 10:51 | Infectious Disease Progress No ---
Date of Encounter: 01/16/17 Time of Encounter: 10:48 - Assessment and Plan (1) SIRS (systemic inflammatory response syndrome) Current Visit: Yes Status: Resolved The patient had three SIRS criteria (fever, tachycardia, and leukocytosis). Etiology unclear: infectious vs. mediastinal mass. Improved. The patient had a fever of 100.0 on 01/12, but has been afebrile since then. Additionally, the patient's WBC has normalized. Tachycardia has resolved. Blood cultures drawn 01/07/17 are negative x 2 sets. (2) Mediastinal mass Current Visit: Yes Status: Acute Location: Subcarinal. Etiology unclear. Status post attempted EBUS that was unsuccessful. Status post thoracotomy and biopsy of the lesion and several lymph nodes by Dr. Brown. Frozen sections not obvious for malignancy. Pathology pending. Pleural fluid encountered intra-op was turbid and brown. Aerobic and anaerobic cultures are negative. AFB culture negative as well. Await fungal cultures and GMS stain --> pending. Spoke with Dr. Collier in pathology. States GMS stain shows findings that are not definitive of Histoplasma, but she is unable to rule it out either. States she is awaiting hematology pathologist to review slides before sending out final resuls. Fungitell positive. Histoplasma Ab negative. Discontinue Zosyn Continue itraconazole 200mg PO daily for now. Itraconazole level pending. Monitor renal and liver function closely and dose-adjust antibiotics/ antifungals. Duration of treatment depends on the clinical picture. (3) Mediastinal adenopathy Current Visit: Yes Status: Acute Status post biopsy. Pathology pending. (4) Respiratory failure Current Visit: Yes Status: Resolved Secondary to surgery. Extubated 01/11/17. Resolved. Qualifiers: Chronicity: acute Respiratory failure complication: unspecified whether with hypoxia or hypercapnia Qualified Code(s): J96.00 - Acute respiratory failure, unspecified whether with hypoxia or hypercapnia (5) Pleural effusion Current Visit: Yes Status: Acute CXR completed 01/14/17 shows a small right sided and trace left sided pleural effusion. Continue to follow with serial CXRs. (6) Elevated erythrocyte sedimentation rate Current Visit: Yes Status: Acute (7) IV site infection Current Visit: Yes Status: Acute Location: Left AC. Per nursing notes, erythema, tenderness, and pus draining from site when it was removed. No evidence of cellulitis on exam today. Continue Bactrim DS 1 tab PO BID (day 2) x 7 days. Monitor renal function and dose-adjust antibiotics. Qualifiers: Encounter type: initial encounter Qualified Code(s): T82.7XXA - Infection and inflammatory reaction due to other cardiac and vascular devices, implants and grafts, initial encounter - Subjective Interval history: Patient seen and examined. No acute events noted overnight. Chest tubes removed 01/15/17. Patient lying in bed for the exam. Complains of right lateral chest pain. Denies fevers or chills. Denies chest pain or shortness of breath. Reports a continued cough productive of light brown sputum. Denies nausea, vomiting, or diarrhea. States he is not sure when his last BM was, but per nursing the patient has not had a BM since admission. He denies urinary complaints. He states that his appetite is dependent on how much pain he is having. He denies any oral thrush or new skin lesions. Infect Dis PN-Objective Data - Labs CBC & Chem 7: 01/16/17 05:36 01/15/17 09:09 Labs: Laboratory Results - last 24 hr 01/16/17 05:36 WBC 10.7 RBC 4.54 Hgb 12.6 L Hct 38.7 MCV 85.2 MCH 27.8 L MCHC 32.6 RDW 13.1 Plt Count 432 H MPV 11.5 Immature Gran % 4.9 H Seg Neutrophils % 66.3 Lymphocytes % 18.0 Monocytes % 6.4 Eosinophils % 3.5 Basophils % 0.9 Neutrophils # 7.1 Lymphocytes # 1.9 Monocytes # 0.7 Eosinophils # 0.4 Basophils # 0.1 Nucleated RBCs/100 WBC 0.9 H Cultures: Cultures 01/11/17 08:38 Anaerobic Culture - Final Pleural Fluid No anaerobes were recovered. 01/11/17 08:38 Body Fluid Culture - Final Pleural Fluid 01/11/17 08:38 Acid Fast Stain - Final Pleural Fluid Serology 01/12/17 01/12/17 Range/Units 06:41 05:10 U Histopl Galactoman Ag NOT DETECTED ng/mL U Histopl Galact Ant Int NOT DETECTED (Not Detected) Beta-(1,3)-D-Glucan 151 pg/mL B-(1,3)-D-Glucan Intrp POSITIVE A (Negative) Exam - Constitutional Vitals: Temp Pulse Resp BP Pulse Ox 97.6 F 76 17 139/67 97 01/16/17 07:00 01/16/17 07:00 01/16/17 07:00 01/16/17 07:00 01/16/17 07:00 General appearance: cooperative, no acute distress, obese - Head Head exam: Present: atraumatic, normal inspection, normocephalic - Eye Eye exam: Present: EOMI, normal appearance, PERRL Pupils: Present: normal accommodation - ENT ENT exam: Present: mucous membranes moist - Neck Neck exam: Present: normal inspection - Respiratory Respiratory exam: Present: CTAB. Absent: rales, respiratory distress, rhonchi, wheezes Additional comments: Right posterior lateral chest wall surgical incision with dressing with a small amount of old bloody drainage noted. No surrounding erythema, edema, or tenderness noted. Chest tube sites to the right lateral chest wall with dressing clean, dry, and intact. Mild tenderness noted with palpation. No erythema, edema, or drainage noted. No crepitus appreciated. - Cardiovascular Cardiovascular exam: Present: RRR, +S1, +S2 - GI/Abdominal GI/Abdominal exam: Present: normal bowel sounds, soft. Absent: distended, tenderness - Extremities Exam Extremities exam: Present: normal inspection. Absent: joint swelling, pedal edema, tenderness - Neurological Exam Neurological exam: Present: alert, oriented X3, no focal deficits - Psychiatric Psychiatric exam: Present: normal affect, normal mood - Skin Skin exam: Present: dry, intact, normal color, warm - VTE Documentation of Mechanical Device: Intermittent pneumatic compression device Consult Discharge Plan - Plan Instructions: Chest Pain (DC), Thoracotomy (DC), Sepsis (DC), Pneumonia (DC) Referrals: NO,PCP [Primary Care Provider] - - Attending Attestation I examined this patient and my medical decision-making was reviewed with the TR[employer] B[employer] BUILDER APPRENTICE/PA/Advanced Practice Nurse/Resident Physician. I agree with the documented findings, disposition and treatment plan as described except to the extent set forth below.
[2017-01-16] MEDS: *HR* OxyCODONE/APAP 7.5/325 TABLET PO PRN ×2 (14:36→20:17)
[2017-01-16 14:44] LABS: BUN/Creatinine Ratio 12 (6-26); Blood Urea Nitrogen 8 mg/dL (8-26); Calcium 9.4 mg/dL (8.6-10.8); Carbon Dioxide 26 mEq/L (19-29); Chloride 103 mEq/L (98-109); Glucose 104 mg/dL (70-99); Osmolality,Calculated 281 (280-300); Potassium 3.9 mEq/L (3.5-4.5); Sodium 136 mEq/L (136-145); eGFR For African Americans > 60 (> 60); eGFR For Non-African Americans > 60 (> 60)
[2017-01-17] MEDS: *HR* OxyCODONE/APAP 7.5/325 TABLET PO PRN (02:37)
[2017-01-17] MEDS: *HR* Heparin 5,000 UNIT/ML VIAL SQ SCH ×3 (06:08→21:12)
[2017-01-17 06:27] LABS: Hematocrit 38.7 % (37.5-50.1); Hemoglobin 12.7 g/dL (12.9-16.9); Mean Corpuscular HGB Conc 32.8 g/dL (31.6-35.5); Mean Corpuscular Hemoglobin 27.5 pg (28.0-33.3); Mean Corpuscular Volume 83.9 fL (83.0-100.0); Mean Platelet Volume 10.5 fL (9.4-12.4); Platelet Count 541 K/mcL (140-400); Red Blood Count 4.61 M/mcL (4.19-5.50); Red Cell Distribution Width 13.1 % (11.5-14.5)
[2017-01-17 06:48] LABS: Eosinophils # 0.2 K/mcL (0.0-0.6); Lymphocytes # 2.3 K/mcL (0.6-4.6); Monocytes # 0.6 K/mcL (0.0-1.3); Neutrophils # 7.4 K/mcL (1.6-8.9)
[2017-01-17 06:49] LABS: Platelet Estimate Increased (Normal)
--- NOTE | 2017-01-17 08:41 | Cardiothoracic Progress Note ---
Date of Encounter: 01/17/17 Time of Encounter: 08:39 - Assessment and plan (1) Mediastinal mass Current Visit: Yes Status: Acute The patient is okay for discharge from my standpoint. I will need to see him in the office in 4 weeks for a check. - Subjective Interval history: The patient is ambulating and slowly gaining strength. Vital Signs, Last 4 Hours Pulse Resp BP Pulse Ox 01/17/17 06:52 94 15 141/72 97 Oxgyen Flow Rate Oxygen Flow Rate (LPM) 4 Weight 01/15/17 01/16/17 01/17/17 23:59 23:59 23:59 Weight 127 kg 123.5 kg 121.1 kg Lungs are clear to percussion and auscultation. Heart is in a normal sinus rhythm. His incision is healing well without signs of infection. The chest x- ray is improved. - Labs 01/17/17 06:00 01/16/17 14:02 Lab Results, Last 24 hours 01/16/17 01/17/17 14:02 06:00 WBC 10.6 Hgb 12.7 L Hct 38.7 Plt Count 541 H Sodium 136 Potassium 3.9 Chloride 103 Carbon Dioxide 26 BUN 8 Creatinine 0.68 L Glucose 104 H Calcium 9.4 - VTE Documentation of Mechanical Device: Intermittent pneumatic compression device Consult Discharge Plan - Plan Instructions: Chest Pain (DC), Thoracotomy (DC), Sepsis (DC), Pneumonia (DC) Referrals: NO,PCP [Primary Care Provider] -
[2017-01-17] MEDS: Sulfamethoxazole/Trimeth DS 1 EACH TABLET PO SCH ×2 (09:06→21:12)
[2017-01-17] MEDS: *HR* OxyCODONE/APAP 10/325 TABLET PO PRN ×3 (09:09→21:12)
--- NOTE | 2017-01-17 09:36 | Internal Med Progress Note ---
<KyleChris acosta - Last Filed: 01/17/17 09:34> Date of Encounter: 01/17/17 Time of Encounter: 09:34 - Assessment and plan (1) Mediastinal mass Current Visit: Yes Status: Acute Assessment and plan: Postop day 6 status post thoracotomy with removal of mediastinal mass. Pathology at this point been negative for malignancy and there is concern for an infectious process with possible fungal infection. Fungitell is positive, fungal cultures pending. Patient is currently on itraconazole. Infectious disease is following and we appreciate their recommendations. RAMP LEAD pump was removed yesterday. Patient is only using by mouth pain medications at this time. (2) Pleural effusion Current Visit: Yes Status: Acute Assessment and plan: Possibly infectious. Fluid cultures obtained intraoperatively are pending. Fluid analysis by pathology was negative (3) DVT prophylaxis Current Visit: Yes Status: Acute Assessment and plan: Heparin 5000 units subcutaneous twice a day - Subjective Interval history: Patient seen and examined bedside. Patient reports pain is improving. Otherwise the patient states that he feels pretty good. He reports mild shortness of breath when ambulating. He denies any chest pain, fever, chills. - Constitutional Vitals: Temp Pulse Resp BP Pulse Ox 98.5 F 94 15 141/72 97 01/17/17 03:54 01/17/17 06:52 01/17/17 06:52 01/17/17 06:52 01/17/17 06:52 General appearance: Present: A&O X 3, pleasant, no acute distress - Respiratory Respiratory exam: Present: CTAB. Absent: rales, rhonchi, wheezes - Cardiovascular Cardiovascular exam: Present: RRR. Absent: gallop, rubs, systolic murmur - GI/Abdominal GI/Abdominal exam: Present: normal bowel sounds, soft. Absent: distended, tenderness - Extremities Exam Extremities exam: Present: warm. Absent: pedal edema, tenderness - Neurological Exam Neurological exam: Present: alert, CN II-XII intact, oriented X3, no focal deficits Internal Medicine: Result - Labs CBC & Chem 7: 01/17/17 06:00 01/16/17 14:02 Labs: Short CBC 01/17/17 Range/Units 06:00 WBC 10.6 (4.3-11.1) K/mcL Hgb 12.7 L (12.9-16.9) g/dL Hct 38.7 (37.5-50.1) % Plt Count 541 H (140-400) K/mcL Neutrophils # 7.4 (1.6-8.9) K/mcL BMP 01/16/17 14:02 Sodium 136 Potassium 3.9 Chloride 103 Carbon Dioxide 26 BUN 8 Creatinine 0.68 L Glucose 104 H Calcium 9.4 - ABG Interpretation ABG results: ABG ABG pH 7.33 pH Units (7.32-7.45) 01/11/17 12:18 ABG pCO2 49 mmHg (35-45) H 01/11/17 12:18 ABG pO2 111 mmHg (85-104) H 01/11/17 12:18 ABG O2 Saturation 98 % (95-98) 01/11/17 12:18 PT/INR, D-dimer PT 17.1 Seconds (9.4-12.1) H 01/08/17 04:05 - Impressions Impressions Chest X-Ray 01/17/17 00:01 IMPRESSION: 1. No discernible pneumothorax after chest tube removal. 2. Improving bibasilar airspace disease. D/ / Brady Garza MD / Brady Garza MD Interpreting Provider: Brady Garza MD - VTE Documentation of Mechanical Device: Intermittent pneumatic compression device Consult Discharge Plan - Plan Instructions: Chest Pain (DC), Thoracotomy (DC), Sepsis (DC), Pneumonia (DC) Referrals: NO,PCP [Primary Care Provider] - <Vimal Collier P - Last Filed: 01/17/17 12:35> Date of Encounter: 01/17/17 - Constitutional Vitals: Temp Pulse Resp BP Pulse Ox 98.5 F 94 15 141/72 97 01/17/17 03:54 01/17/17 06:52 01/17/17 06:52 01/17/17 06:52 01/17/17 06:52 Internal Medicine: Result - Labs CBC & Chem 7: 01/17/17 06:00 01/16/17 14:02 Labs: Short CBC 01/17/17 Range/Units 06:00 WBC 10.6 (4.3-11.1) K/mcL Hgb 12.7 L (12.9-16.9) g/dL Hct 38.7 (37.5-50.1) % Plt Count 541 H (140-400) K/mcL Neutrophils # 7.4 (1.6-8.9) K/mcL BMP 01/16/17 14:02 Sodium 136 Potassium 3.9 Chloride 103 Carbon Dioxide 26 BUN 8 Creatinine 0.68 L Glucose 104 H Calcium 9.4 - ABG Interpretation ABG results: ABG ABG pH 7.33 pH Units (7.32-7.45) 01/11/17 12:18 ABG pCO2 49 mmHg (35-45) H 01/11/17 12:18 ABG pO2 111 mmHg (85-104) H 01/11/17 12:18 ABG O2 Saturation 98 % (95-98) 01/11/17 12:18 PT/INR, D-dimer PT 17.1 Seconds (9.4-12.1) H 01/08/17 04:05 - Impressions Impressions Chest X-Ray 01/17/17 00:01 IMPRESSION: 1. No discernible pneumothorax after chest tube removal. 2. Improving bibasilar airspace disease. D/ / Brady Garza MD / Brady Garza MD Interpreting Provider: Brady Garza MD - Attending Attestation I examined this patient and my medical decision-making was reviewed with the SPRUE KNOCKER/PA/Advanced Practice Nurse/Resident Physician. I agree with the documented findings, disposition and treatment plan as described except to the extent set forth below. Possible home today/tomorrow Patient is taking pain medication but complains that he has still ongoing pain to thoracotomy Site. Patient asked for intravenous pain medication. We will observe him today if he does not need any IV pain medication then likely discharge tomorrow
[2017-01-17] MEDS: Ondansetron 4 MG/2 ML VIAL IVP PRN ×2 (13:57→21:11)
--- NOTE | 2017-01-17 14:45 | Infectious Disease Progress No ---
Date of Encounter: 01/17/17 Time of Encounter: 14:44 - Assessment and Plan (1) SIRS (systemic inflammatory response syndrome) Current Visit: Yes Status: Resolved The patient had three SIRS criteria (fever, tachycardia, and leukocytosis). Etiology unclear: infectious vs. mediastinal mass. Improved. The patient had a fever of 100.0 on 01/12, but has been afebrile since then. Additionally, the patient's WBC has normalized. Tachycardia has resolved. Blood cultures drawn 01/07/17 are negative x 2 sets. Resolved (2) Mediastinal mass Current Visit: Yes Status: Acute Location: Subcarinal. Etiology likely due to histoplasma Status post attempted EBUS that was unsuccessful. Status post thoracotomy and biopsy of the lesion and several lymph nodes by Dr. Brown. Frozen sections not obvious for malignancy. Pathology pending. Pleural fluid encountered intra-op was turbid and brown. Aerobic and anaerobic cultures are negative. AFB culture negative as well. Await fungal cultures and GMS stain --> pending. Spoke with Dr. Collier in pathology. States GMS stain shows findings that are not definitive of Histoplasma, but she is unable to rule it out either. States she is awaiting hematology pathologist to review slides before sending out final resuls. Fungitell positive. Histoplasma Ab negative. histoplasma serology positive Discontinue Zosyn Continue itraconazole 200mg PO daily for now. Itraconazole level pending. Monitor renal and liver function closely and dose-adjust antibiotics/ antifungals. Duration of treatment depends on the clinical picture. follow up with us in clinic in 2 weeks (3) Mediastinal adenopathy Current Visit: Yes Status: Acute Status post biopsy. Pathology pending. (4) Respiratory failure Current Visit: Yes Status: Resolved Secondary to surgery. Extubated 01/11/17. Resolved. Qualifiers: Chronicity: acute Respiratory failure complication: unspecified whether with hypoxia or hypercapnia Qualified Code(s): J96.00 - Acute respiratory failure, unspecified whether with hypoxia or hypercapnia (5) Pleural effusion Current Visit: Yes Status: Acute CXR completed 01/14/17 shows a small right sided and trace left sided pleural effusion. Continue to follow with serial CXRs. (6) Elevated erythrocyte sedimentation rate Current Visit: Yes Status: Acute (7) IV site infection Current Visit: Yes Status: Acute Location: Left AC. Per nursing notes, erythema, tenderness, and pus draining from site when it was removed. No evidence of cellulitis on exam today. Continue Bactrim DS 1 tab PO BID (day 2) x 7 days. Monitor renal function and dose-adjust antibiotics. Qualifiers: Encounter type: initial encounter Qualified Code(s): T82.7XXA - Infection and inflammatory reaction due to other cardiac and vascular devices, implants and grafts, initial encounter - Subjective Interval history: Patient seen and examined. No acute events noted overnight. appears comfortalbe. appears to be in pain still. Patient denies any fevers, chills. no diarrhea. no dysphagia. Infect Dis PN-Objective Data - Labs CBC & Chem 7: 01/17/17 06:00 01/16/17 14:02 Labs: Laboratory Results - last 24 hr 01/12/17 01/16/17 01/17/17 06:41 14:02 06:00 WBC 10.6 RBC 4.61 Hgb 12.7 L Hct 38.7 MCV 83.9 MCH 27.5 L MCHC 32.8 RDW 13.1 Plt Count 541 H MPV 10.5 Seg Neutrophils % 70.0 Lymphocytes % 22.0 Monocytes % 6.0 Eosinophils % 2.0 Neutrophils # 7.4 Lymphocytes # 2.3 Monocytes # 0.6 Eosinophils # 0.2 Platelet Estimate Increased H Sodium 136 Potassium 3.9 Chloride 103 Carbon Dioxide 26 BUN 8 Creatinine 0.68 L Est GFR ( Amer) > 60 Est GFR (Non-Af Amer) > 60 BUN/Creatinine Ratio 12 Glucose 104 H Calculated Osmolality 281 Calcium 9.4 Histoplasma Mycel Ab CF <1:8 Histoplasma Yeast Ab CF 1:128 H Cultures: Cultures 01/11/17 08:38 Anaerobic Culture - Final Pleural Fluid No anaerobes were recovered. 01/11/17 08:38 Body Fluid Culture - Final Pleural Fluid 01/11/17 08:38 Acid Fast Stain - Final Pleural Fluid Serology 01/12/17 01/12/17 Range/Units 06:41 05:10 Histoplasma Mycel Ab CF <1:8 (<1:8) Histoplasma Yeast Ab CF 1:128 H (<1:8) U Histopl Galactoman Ag NOT DETECTED ng/mL U Histopl Galact Ant Int NOT DETECTED (Not Detected) Beta-(1,3)-D-Glucan 151 pg/mL B-(1,3)-D-Glucan Intrp POSITIVE A (Negative) - Impressions Impressions Chest X-Ray 01/17/17 00:01 IMPRESSION: 1. No discernible pneumothorax after chest tube removal. 2. Improving bibasilar airspace disease. D/ / Brady Garza MD / Brady Garza MD Interpreting Provider: Brady Garza MD Exam - Constitutional Vitals: Temp Pulse Resp BP Pulse Ox 98.5 F 94 15 141/72 97 01/17/17 03:54 01/17/17 06:52 01/17/17 06:52 01/17/17 06:52 01/17/17 06:52 General appearance: no acute distress, no febrile - Head Head exam: Present: atraumatic, normocephalic - Respiratory Respiratory exam: Present: CTAB. Absent: wheezes - Cardiovascular Cardiovascular exam: Present: RRR, +S1, +S2 - GI/Abdominal GI/Abdominal exam: Present: soft. Absent: tenderness - Extremities Exam Extremities exam: Present: normal inspection. Absent: pedal edema - Neurological Exam Neurological exam: Present: alert, oriented X3. Absent: speech deficit - VTE Documentation of Mechanical Device: Intermittent pneumatic compression device Consult Discharge Plan - Plan Instructions: Chest Pain (DC), Thoracotomy (DC), Sepsis (DC), Pneumonia (DC) Referrals: NO,PCP [Primary Care Provider] -
[2017-01-18] MEDS ORDERED: Melatonin 3 MG TABLET PO PRN (01:22)
[2017-01-18] MEDS: *HR* Heparin 5,000 UNIT/ML VIAL SQ SCH (06:01)
[2017-01-18] MEDS: *HR* OxyCODONE/APAP 10/325 TABLET PO PRN (06:03)
[2017-01-18 06:26] VITALS: BP 101/55
--- NOTE | 2017-01-18 07:44 | Discharge Summary ---
<Chris Christopher - Last Filed: 01/18/17 09:23> Date of Encounter: 01/18/17 Time of Encounter: 07:41 - Discharge Diagnosis (1) Mediastinal mass Priority: Primary Status: Acute (2) Pleural effusion Priority: Primary Status: Acute (3) DVT prophylaxis Priority: Secondary Status: Acute - Discharge Medications Prescriptions: OxyCODONE/APAP 10/325 [Percocet 10/325 MG] 1 each PO Q6HR PRN #30 tablet PRN Reason: Pain Itraconazole [Sporanox] 200 mg PO DAILY #42 capsule Sennosides/Docusate Sodium [Senna Plus] 1 each PO BID PRN #30 tablet PRN Reason: Constipation Sulfamethoxazole/Trimeth DS [Bactrim Ds] 1 each PO BID #8 tablet Home Medications: Itraconazole [Sporanox] 200 mg PO DAILY #42 capsule 01/18/17 [Rx] OxyCODONE/APAP 10/325 [Percocet 10/325 MG] 1 each PO Q6HR PRN #30 tablet [Rx] Sennosides/Docusate Sodium [Senna Plus] 1 each PO BID PRN #30 tablet 01/18/17 [ Rx] Sulfamethoxazole/Trimeth DS [Bactrim Ds] 1 each PO BID #8 tablet 01/18/17 [Rx] Allergies/Adverse Reactions: Allergies No Known Allergies Allergy (Verified 12/31/16 18:43) Date of admission: 01/08/17 03:47 Primary care physician: PCP NO Consults: 01/10/17 12:21 Consult to Cardiothoracic Surgery [CONS] Routine Consulting Provider: [facility] [place] Reason for Consult: Mediastinal mass that could not be biopsied with bronchoscopy. Would like tissue for pathology. Call Completed: Yes 01/11/17 11:28 Consult to Super[facility] Sleeping [facility] Department [CONS] Routine Reason for SW Consult: thoracotomy 01/11/17 13:06 Consult to Infectious Diseases [CONS] Routine Consulting Provider: [facility] Reason for Consult: mediastinal mass ?fungal Call Completed: Yes 01/16/17 08:59 Consult to Physical Therapy [CONS] Routine Comment: Evaluate, develop and implement POC Reason for Consult: Deconditioning 01/16/17 09:00 Consult to Occupational Therapy [CONS] Routine Comment: Evaluate, develop and implement POC Reason for Consult: Deconditioning Discharging clinician: Chris Christopher Anticipated date of discharge: 01/18/17 - Patient Status Disposition: Home, Self-Care Condition: Fair Functional capacity at discharge: independent ambulation Overall status at discharge: patient is progressing back to baseline - Discharge Instructions Instructions: Sulfamethoxazole/Trimethoprim (By mouth), Oxycodone/ Acetaminophen (By mouth), Laxative, Stimulant (By mouth), Itraconazole (By mouth ), Chest Pain (DC), Thoracotomy (DC), Sepsis (DC), Pneumonia (DC) Follow Up With: [facility] [Provider Group] - 01/29/17 8:30 am (FOLLOW UP IN 2 weeks with Daly Colbert, this RN called to verify) Chris Christopher DO [Resident] - 02/05/17 3:00 pm Mao Brown MD [Partnered Physician] - 01/31/17 2:00 pm Additional Instructions: Please follow-up with Dr. Christopher as scheduled. Please follow up with Dr. Brown as scheduled. Please follow-up with Dr. Stauffer as scheduled. Please have your labs drawn in 2 weeks. Please take your medications as directed. Please return for any new or worsening symptoms. - Diet and Activity Activity: as per physical therapy, increase activity as tolerated Diet: advance to your usual diet Interval History: Patient seen and examined at bedside. Patient states that he feels pretty good. He has no complaints at this time. Hospital course: Mr. Renteria is a 26 year old male with no seen medical history presented with pleuritic chest pain. Chest x-ray was performed which showed a large mediastinal mass which was confirmed via CT scan. Patient underwent bronchoscopy that was unsuccessful in providing a histologic diagnosis so patient underwent thoracotomy and surgical removal of the mass. The mass was negative for malignancy and the concern for infection was raised. Workup revealed positive serology for histoplasmosis and pathology reported necrotizing granulomas which is likely consistent with histoplasmosis. Patient was initiated on itraconazole and is being followed by infectious disease. The patient recovered from surgery well. The patient will be discharged home in stable condition and will participate in physical therapy as an outpatient. - Time Spent with Patient Total time spent providing and/or coordinating discharge services: - Constitutional Vitals: Temp Pulse Resp BP Pulse Ox 98.2 F 72 15 101/55 93 01/18/17 06:21 01/18/17 06:21 01/18/17 06:21 01/18/17 06:21 01/18/17 06:21 General appearance: Present: A&O X 3, pleasant, no acute distress - Respiratory Respiratory exam: Present: CTAB. Absent: rales, rhonchi, wheezes - Cardiovascular Cardiovascular exam: Present: RRR. Absent: gallop, rubs, systolic murmur - GI/Abdominal GI/Abdominal exam: Present: normal bowel sounds, soft. Absent: distended, tenderness - Extremities Exam Extremities exam: Present: warm. Absent: pedal edema, tenderness - Neurological Exam Neurological exam: Present: alert, CN II-XII intact, oriented X3, no focal deficits - VTE Documentation of Mechanical Device: Intermittent pneumatic compression device <Vimal Collier P - Last Filed: 01/18/17 16:53> Date of Encounter: 01/18/17 Date of admission: 01/08/17 03:47 Primary care physician: PCP NO Consults: 01/10/17 12:21 Consult to Cardiothoracic Surgery [CONS] Routine Consulting Provider: [facility] Reason for Consult: Mediastinal mass that could not be biopsied with bronchoscopy. Would like tissue for pathology. Call Completed: Yes 01/11/17 11:28 Consult to Super[facility] Sleeping [facility] Department [CONS] Routine Reason for SW Consult: thoracotomy 01/11/17 13:06 Consult to Infectious Diseases [CONS] Routine Consulting Provider: [facility] [place] Reason for Consult: mediastinal mass ?fungal Call Completed: Yes 01/16/17 08:59 Consult to Physical Therapy [CONS] Routine Comment: Evaluate, develop and implement POC Reason for Consult: Deconditioning 01/16/17 09:00 Consult to Occupational Therapy [CONS] Routine Comment: Evaluate, develop and implement POC Reason for Consult: Deconditioning Hospital course: Mr. Renteria is a 26 year old male - Time Spent with Patient Total time spent providing and/or coordinating discharge services: - Constitutional Vitals: Temp Pulse Resp BP Pulse Ox 98.2 F 72 15 101/55 93 01/18/17 06:21 01/18/17 06:21 01/18/17 06:21 01/18/17 06:21 01/18/17 06:21 - Attending Attestation I examined this patient and my medical decision-making was reviewed with the [employer]/PA/Advanced Practice Nurse/Resident Physician. I agree with the documented findings, disposition and treatment plan as described except to the extent set forth below. follow up with PCP, ID, CTS and dermatology as outpatient
--- NOTE | 2017-01-18 09:07 | Cardiothoracic Progress Note ---
Date of Encounter: 01/18/17 Time of Encounter: 09:05 - Assessment and plan (1) Mediastinal mass Current Visit: Yes Status: Acute The patient is awaiting dermatology consultation. He is okay for discharge from my standpoint. I need to see him in the office in 4 weeks for a check. - Subjective Interval history: The patient's postoperative pain is improved and controlled with by mouth medications. Vital Signs, Last 4 Hours Temp Pulse Resp BP Pulse Ox 01/18/17 06:21 98.2 F 72 15 101/55 93 Oxgyen Flow Rate Oxygen Flow Rate (LPM) 4 Clinical Data, last 8 Hours Output, Urine Amount 0 Weight 01/16/17 01/17/17 01/18/17 23:59 23:59 23:59 Weight 123.5 kg 121.1 kg Lungs are clear to percussion and auscultation. Heart is in a normal sinus rhythm. His incision is healing well without signs of infection. - Labs 01/17/17 06:00 01/16/17 14:02 - VTE Documentation of Mechanical Device: Intermittent pneumatic compression device Consult Discharge Plan - Plan Instructions: Chest Pain (DC), Thoracotomy (DC), Sepsis (DC), Pneumonia (DC) Additional Instructions: Please follow-up with your primary care physician as scheduled. Please follow up with Dr. Brown as scheduled. Please follow-up with Dr. Stauffer as scheduled. Please take your medications as directed. Please return for any new or worsening symptoms. Referrals: Chris Christopher DO [Resident] - 02/05/17 3:00 pm
[2017-01-18] MEDS: Sulfamethoxazole/Trimeth DS 1 EACH TABLET PO SCH (09:42)
== END 2017-01-18 12:43 | disposition home or self-care (01) ==
LOC: 2NENU 18:35 → EMEROO 18:35 → 2NENU 01-08 00:48 → SUATTDRO 01-08 03:47 → ICNU 01-11 11:35 → 2NENU 01-13 06:10
PROVIDERS: ADMIT Internal Medicine; ATTEND Internal Medicine